=== PATIENT | male | born 1960 | race Caucasian/White ===

== ENCOUNTER 2019-12-21 10:21 | Outpatient (CLI) | payer OTHER, SELFPAY ==
--- NOTE | ~2019-12-21 | US_ITS ---
EXAMINATION: US right upper quadrant EXAM DATE: 12/21/2019 11:05 INDICATION: Cholecystectomy. Upper abdominal pain. TECHNIQUE: Multiple grayscale and Doppler images of the abdomen right upper quadrant were obtained (b y a technologist who performed the scan) and subsequently reviewed. Comparison is made to prior exami nation from 08/18/2018. FINDINGS: The pancreatic head and body are normal in appearance. The pancreatic tail is not visualized. The l iver has normal echogenicity and contour. There are no focal liver lesions identified. There is no evidence of intrahepatic biliary duct dilation. Portal venous flow was seen in the hepatopedal, nor mal direction and has normal Doppler waveform. No right-sided hydronephrosis. Common bile duct measures 5 mm, which is normal. The gallbladder fossa is unremarkable. IMPRESSION: 1. Unremarkable abdominal ultrasound exam. Reviewed, dictated and finalized at location A.
[2019-12-21 11:14] LABS: Basophils Percent Auto 0.5 % (0.2-1.2); Eosinophils Absolute Auto 1.8 K/mm3 (0-0.3); Hematocrit 46.8 % (42.0-52.0); Hemoglobin 16.2 g/dL (14.0-18.0); Immature Granulocyte Absolute 0.03 K/mm3 (0.00-0.031); Immature Granulocyte Percent A 0.3 % (0-0.5); Lymphocytes Absolute Auto 2.05 K/mm3 (0.9-3.2); Lymphocytes Percent Auto 23.8 % (18.3-44.2); Mean Corpuscular HGB Conc 34.6 g/dl (32-36); Mean Corpuscular Hemoglobin 30.7 pg (26-34); Mean Corpuscular Volume 88.6 fl (80-100); Mean Platelet Volume 9.8 fl (7.4-10.4); Monocytes Absolute Auto 0.7 K/mm3 (0.1-0.6); Neutrophils Percent Auto 46.4 % (45.5-73.1); Platelet Count Result 261 k/mm3 (150-375); Red Blood Count 5.28 M/mm3 (4.6-6.20); Red Cell Distribution Width 12.2 % (11.5-14.5); White Blood Count 8.6 K/mm3 (4.5-10.0)
[2019-12-21 11:21] LABS: Hemoglobin A1C 5.3 % (<5.7)
[2019-12-21 11:24] LABS: Alanine Aminotransferase 19 U/L (4-50); Albumin Level 4.3 g/dL (3.5-5.1); Alkaline Phosphatase 97 U/L (38-126); Aspartate Amino Transferase 28 U/L (17-59); Bilirubin,Total 0.6 mg/dL (0.2-1.3); Blood Urea Nitrogen 11 mg/dL (9-20); Calcium 9.3 mg/dL (8.4-10.2); Carbon Dioxide 29 mmol/L (22-30); Chloride 103 mmol/L (98-107); Cholesterol 167 mg/dL (0-200); Estimated Glomerular Filt Rate > 60; Glucose 93 mg/dL (75-110); HDL Direct 33 mg/dL; Sodium 139 mmol/L (137-145); Triglycerides 110 mg/dL (<150)
[2019-12-21 11:35] LABS: LDL Cholesterol Direct 98 mg/dL
[2019-12-21 11:54] LABS: Prostate Specific Antigen 4.9 ng/mL (< OR = 4.0); Thyroid Stimulating Hormone 0.362 uIU/mL (0.465-4.680)
[2019-12-21 11:55] LABS: Free T4 Free Thyroxine 1.48 ng/mL (0.78-2.19)
[2019-12-25 23:08] LABS: Vitamin D 1,25 (OH)2 Total 44 pg/mL (18-72); Vitamin D2 1,25 (OH)2 <8 pg/mL; Vitamin D3 1,25 (OH)2 44 pg/mL
== END 2019-12-21 10:22 | disposition home or self-care (01) ==
PROVIDERS: PCP Internal Medicine; Visit Provider Internal Medicine
DX: E55.9 Vitamin D deficiency, unspecified (principal); E03.9 Hypothyroidism, unspecified; E78.2 Mixed hyperlipidemia; Z12.5 Encounter for screening for malignant neoplasm of prostate; Z79.899 Other long term (current) drug therapy
CPT/HCPCS: 36415; 76705; 80053; 80061; 82652; 83036; 84153; 84439; 84443; 85025; G0103

== ENCOUNTER 2019-12-27 06:48 | Outpatient (CLI) | payer OTHER, SELFPAY ==
[2019-12-31 15:38] LABS: H pylori Ag Stool Not Detected (Not Detected)
== END 2019-12-27 06:49 | disposition home or self-care (01) ==
LOC: ANHLAB 06:50
PROVIDERS: PCP Internal Medicine; Visit Provider Surgery
DX: R10.10 Upper abdominal pain, unspecified (principal)
CPT/HCPCS: 87338

== ENCOUNTER 2020-01-02 16:01 | Outpatient (CLI) | payer OTHER, SELFPAY ==
--- NOTE | ~2020-01-02 | MR_ITS ---
EXAMINATION: MR brain/brain stem wo/w con EXAM DATE: 01/02/2020 16:51 INDICATION: Loss of taste and smell. TECHNIQUE: Magnetic resonance imaging (MRI) of the brain/brain stem obtained without contrast. Sagit renata T1, axial diffusion, gradient echo (T2*), T1, T2, FLAIR sequences obtained. Patient was then inj ected with 18 cc intravenous Multihance contrast. Axial and coronal postcontrast T1 weighted sequence s obtained. Correlation is made to head CT from 02/15/2019. FINDINGS: Some metallic artifact from tiny piece of metal in the left scalp. There are no areas of re stricted diffusion to suggest acute infarction. There is no acute hemorrhage seen on the T2*, a hemo siderin sensitive sequence. No intraparenchymal brain mass. The ventricles are normal in size. Ther e are no extra-axial collections. Flow voids are seen in the cerebral arteries on the T2-weighted se quences consistent with their expected patency. The orbits are unremarkable. Soft tissue is unremar kable. Sinuses are nearly completely opacified. Please note that they were completely opacified on prior sinus CT. Chronic or acute on chronic sinusitis. There are no areas of abnormal enhancement on the post contrast images. The IMPRESSION: 1. Unremarkable brain. 2. Extensive sinus opacity, consider sinusitis. Reviewed, dictated and finalized at location A.
== END 2020-01-02 16:02 | disposition home or self-care (01) ==
PROVIDERS: PCP Internal Medicine; Visit Provider Internal Medicine
DX: R43.8 Other disturbances of smell and taste (principal); R93.0 Abnormal findings on diagnostic imaging of skull and head, not elsewhere classified
CPT/HCPCS: 70553; A9577

== ENCOUNTER 2020-01-04 00:38 | Outpatient (CLI) | payer OTHER, SELFPAY ==
[2020-01-04 18:35] LABS: SARS-CoV-2 RNA PCR Negative
== END 2020-01-04 00:39 | disposition home or self-care (01) ==
LOC: ANHCOVIDDT 00:38
PROVIDERS: PCP Internal Medicine; Visit Provider Internal Medicine Gastroenterology
DX: Z01.812 Encounter for preprocedural laboratory examination (principal); Z20.828 Contact with and (suspected) exposure to other viral communicable diseases
CPT/HCPCS: 87635; C9803; U0003

== ENCOUNTER 2020-01-07 01:19 | Day surgery (SDC) | payer OTHER, SELFPAY ==
[2019-12-27 13:34] VITALS: BMI 27.5
--- NOTE | 2020-01-07 07:13 | WPDANESEPPF ---
Anes - Initial Pre Proc Eval Procedure: Operation Date: 01/07/20 10:30 Proposed Procedures p Esophagogastroduodenoscopy & Colonoscopy - Chris Gerardo MD Date/Time: 01/07/20 07:13 Surgeon: Chris Gerardo MD Pre Op Diagnosis: Abdominal Pain Patient Data Age: 59 Gender: M Height: 1.83 m Weight: 92 kg Allergies Allergy/AdvReac Type Severity Reaction Status Date / Time No Known Allergies Allergy Verified 01/07/20 09:34 Home Medications Medication Instructions Recorded Confirmed Type Bacillus coagulans 250 million 2 tablet PO DAILY 04/26/19 12/27/19 History cell-calcium 250 mg chewable tablet ascorbic acid (vitamin C) 500 mg 500 mg PO DAILY 04/26/19 12/27/19 History capsule aspirin 81 mg tablet,delayed 81 mg PO DAILY 04/26/19 12/27/19 History release cetirizine 10 mg capsule 10 mg PO DAILY 04/26/19 12/27/19 History cinnamon bark 500 mg capsule 1,000 mg PO DAILY cap 04/26/19 12/27/19 History montelukast 10 mg tablet 10 mg PO DAILY 04/26/19 12/27/19 History niacin 500 mg capsule,extended 500 mg PO QAM 04/26/19 12/27/19 History release omega-3 fatty acids 500 mg capsule 500 mg PO DAILY 04/26/19 12/27/19 History levothyroxine 112 mcg tablet 112 mcg PO DAILY #90 tablet 11/19/19 12/27/19 Rx budesonide-formoterol HFA 160 2 puff INHALATION Q12H 12/21/19 12/27/19 History mcg-4.5 mcg/actuation aerosol inhaler calcium citrate 250 mg 1 tablet PO BID 12/21/19 12/27/19 History calcium-vitamin D3 200 unit tablet esomeprazole magnesium 40 mg 40 mg PO DAILY #30 cap 12/21/19 12/27/19 Rx capsule,delayed release albuterol sulfate 1 inh INHALATION QID PRN 12/27/19 12/27/19 History Patient hx anesthesia problems: none Family hx anesthesia problems: none PMFSH Social History Social History Smoking status: Never smoker Smoking end date: 01/01/99 Alcohol intake: current Gender identity (if verbalized by the patient): Male Anes - Eval Final PreProcedure Day of Procedure 01/07/20 07:13 Patient weight: overweight Heart: regular rate and rhythm Lungs: clear to auscultation and normal air movement Airway: Mallampati scale class II Neurological: alert and oriented Last oral intake: >/= 8 hours ASA classification: II Emergent: no Anesthetic plan: proceed Anesthesia type and monitoring: general GIVS Informed Consent: The patient's anesthetic plan and its attendant risks and benefits were discussed with the patient/family/POA. Questions were solicited and answers provided to the satisfaction of the patient/family/POA.
[2020-01-07 09:36] VITALS: BP 126/80; PULSE 78; RESP 16; TEMP 36.5; O2SAT 96; BMI 26.6
[2020-01-07] MEDS: LACTATED RINGERS 1,000 ML 150 ML IV CONT (09:54)
--- NOTE | 2020-01-07 10:16 | WPDGICN ---
Assessment and Plan Assessment and plan (1) Abdominal pain: Qualifiers: Abdominal location: upper abdomen, unspecified Qualified Code(s): R10.10 - Upper abdominal pain, unspecified Code(s): R10.9 - Unspecified abdominal pain Status: Acute Assessment and Plan: Patient has rather vague upper abdominal pain. The etiology is unclear. Does not appear to be related to cholecystectomy performed 1 year ago. Recent laboratory studies and ultrasound are unremarkable. Plan is for colonoscopy an EGD to evaluate more thoroughly. Continue trial of Nexium 40 mg p.o. daily further recommendations will be given after endoscopy. (2) S/P laparoscopic cholecystectomy: Code(s): Z90.49 - Acquired absence of other specified parts of digestive tract Status: Acute GI Consult Note Consult date/time: 01/07/20 10:16 HPI: Randy Vaca is a 59 year old male Seen in evaluation at the request of Dr Newman. patient presents complain about a 3 week history of upper abdominal discomfort. He describes is a pressure pain. Similar to the urge for a bowel movement. Having a bowel movement makes no impact on the pain. He states denies any change with eating. No change with an acids. He has a history of a cholecystectomy 1 year ago. Follow-up with surgeon including abdominal ultrasound is on fruitful. Patient denies any jaundice. Denies any fever. Denies any bleeding. He has had no weight loss. He did have a screening colonoscopy 5 years ago that was unremarkable. His weight appetite, In bowel, movements are otherwise normal. Review of Systems Review of Systems: All systems reviewed & are unremarkable except as noted in HPI and below PMFSH Past Medical History Medical History Abdominal pain Asthma BMI 28.0-28.9,adult Encounter for routine adult health examination with abnormal findings Encounter for special screening examination for neoplasm of prostate GERD (gastroesophageal reflux disease) Hyperlipidemia Hypothyroidism (acquired) On [place] agent drug therapy Thyroid disease Vitamin D deficiency Surgical History Surgical History History of cholecystectomy 11/20/18 Social History Social History Smoking status: Never smoker Smoking end date: 05/23/98 Alcohol intake: current Gender identity (if verbalized by the patient): Male Meds Home Medications and Allergies Home Medications Medication Instructions Recorded Confirmed Type Bacillus coagulans 250 million 2 tablet PO DAILY 04/26/19 12/27/19 History cell-calcium 250 mg chewable tablet ascorbic acid (vitamin C) 500 mg 500 mg PO DAILY 04/26/19 12/27/19 History capsule aspirin 81 mg tablet,delayed 81 mg PO DAILY 04/26/19 12/27/19 History release cetirizine 10 mg capsule 10 mg PO DAILY 04/26/19 12/27/19 History cinnamon bark 500 mg capsule 1,000 mg PO DAILY cap 04/26/19 12/27/19 History montelukast 10 mg tablet 10 mg PO DAILY 04/26/19 12/27/19 History niacin 500 mg capsule,extended 500 mg PO QAM 04/26/19 12/27/19 History release omega-3 fatty acids 500 mg capsule 500 mg PO DAILY 04/26/19 12/27/19 History levothyroxine 112 mcg tablet 112 mcg PO DAILY #90 tablet 11/19/19 12/27/19 Rx budesonide-formoterol HFA 160 2 puff INHALATION Q12H 12/21/19 12/27/19 History mcg-4.5 mcg/actuation aerosol inhaler calcium citrate 250 mg 1 tablet PO BID 12/21/19 12/27/19 History calcium-vitamin D3 200 unit tablet esomeprazole magnesium 40 mg 40 mg PO DAILY #30 cap 12/21/19 12/27/19 Rx capsule,delayed release albuterol sulfate 1 inh INHALATION QID PRN 12/27/19 12/27/19 History Allergies Allergy/AdvReac Type Severity Reaction Status Date / Time No Known Allergies Allergy Verified 01/07/20 09:34 Vital Signs Vital Signs - 24 hr 01/07/20 09:36 Temperature 97.7
[2020-01-07] MEDS: BENZOCAINE (*SP) 60 ML SPRAY CAN (HURRICAINE) 1 SPRAY MUCOUS MEM (11:03)
[2020-01-07] MEDS: SIMETHICONE ORAL SUSPENSION 20 MG/0.3 ML 30 ML BOTTLE 0.6 ML IRRIGATION (11:19)
[2020-01-07 11:32] VITALS: BP 102/54; PULSE 69; RESP 20; O2SAT 98
[2020-01-07 11:42] VITALS: BP 101/67; PULSE 63; RESP 18; O2SAT 99
[2020-01-07 11:52] VITALS: BP 100/67; PULSE 58; RESP 16; O2SAT 99
== END 2020-01-07 12:07 | disposition home or self-care (01) ==
PROVIDERS: PCP Internal Medicine; Visit Provider Internal Medicine Gastroenterology
PROC: 0DJ08ZZ Inspection of Upper Intestinal Tract, Via Natural or Artificial Opening Endoscopic (ICD-10-PCS; CPT 43235; principal; 2020-01-07 10:30)
DX: R10.84 Generalized abdominal pain (principal); R10.13 Epigastric pain; D12.3 Benign neoplasm of transverse colon; K64.8 Other hemorrhoids; J45.909 Unspecified asthma, uncomplicated; K21.9 Gastro-esophageal reflux disease without esophagitis; E78.5 Hyperlipidemia, unspecified; E03.9 Hypothyroidism, unspecified; E55.9 Vitamin D deficiency, unspecified; E66.3 Overweight; Z68.26 Body mass index [BMI] 26.0-26.9, adult; Z79.51 Long term (current) use of inhaled steroids; Z79.82 Long term (current) use of aspirin; Z79.899 Other long term (current) drug therapy
CPT/HCPCS: 45385; 43239; 87081; 88305; A9270; J2704; J7120

== ENCOUNTER 2020-01-31 08:58 | Outpatient (CLI) | payer OTHER, SELFPAY ==
[2020-01-31 09:52] LABS: Alanine Aminotransferase 18 U/L (4-50); Alkaline Phosphatase 94 U/L (38-126); Anion Gap 6 mmol/L (8-16); Aspartate Amino Transferase 23 U/L (17-59); Bilirubin,Total 0.3 mg/dL (0.2-1.3); Blood Urea Nitrogen 17 mg/dL (9-20); Calcium 8.9 mg/dL (8.4-10.2); Carbon Dioxide 28 mmol/L (22-30); Chloride 105 mmol/L (98-107); Estimated Glomerular Filt Rate > 60; Glucose 96 mg/dL (75-110); Lipase 265 U/L (23-300); Potassium 4.3 mmol/L (3.4-5.0); Sodium 139 mmol/L (137-145)
== END 2020-01-31 08:59 | disposition home or self-care (01) ==
PROVIDERS: PCP Internal Medicine; Visit Provider Surgery
DX: R74.8 Abnormal levels of other serum enzymes (principal)
CPT/HCPCS: 36415; 80053; 83690

== ENCOUNTER 2020-05-08 17:07 | Outpatient (CLI) | payer OTHER, SELFPAY ==
[2020-05-10 23:32] LABS: PSA, Free 0.97 ng/mL; PSA, Total 4.7 ng/mL (<=4.0); Percent Free Prostate Spec Ag 21 % (>25)
== END 2020-05-08 17:08 | disposition home or self-care (01) ==
LOC: ANHLAB 17:09
PROVIDERS: PCP Internal Medicine; Visit Provider Urology
DX: R97.20 Elevated prostate specific antigen [PSA] (principal)
CPT/HCPCS: 36415; 84153; 84154

== ENCOUNTER 2020-08-01 06:56 | Outpatient (CLI) | payer OTHER, SELFPAY ==
[2020-08-01 07:36] LABS: Basophils Absolute Auto 0.1 K/mm3 (0.0-0.1); Basophils Percent Auto 0.9 % (0.2-1.2); Eosinophils Absolute Auto 0.9 K/mm3 (0-0.3); Eosinophils Percent Auto 11.8 % (0-4.4); Hematocrit 47.8 % (42.0-52.0); Hemoglobin 16.5 g/dL (14.0-18.0); Immature Granulocyte Absolute 0.02 K/mm3 (0.00-0.031); Immature Granulocyte Percent A 0.3 % (0-0.5); Lymphocytes Absolute Auto 1.88 K/mm3 (0.9-3.2); Lymphocytes Percent Auto 25.2 % (18.3-44.2); Mean Corpuscular HGB Conc 34.5 g/dl (32-36); Mean Corpuscular Hemoglobin 31.2 pg (26-34); Mean Corpuscular Volume 90.4 fl (80-100); Mean Platelet Volume 8.9 fl (7.4-10.4); Monocytes Absolute Auto 0.6 K/mm3 (0.1-0.6); Monocytes Percent Auto 8.6 % (2.6-8.5); Neutrophils Percent Auto 53.2 % (45.5-73.1); Platelet Count Result 256 k/mm3 (150-375); Red Blood Count 5.29 M/mm3 (4.6-6.20); Red Cell Distribution Width 12.2 % (11.5-14.5); White Blood Count 7.5 K/mm3 (4.5-10.0)
[2020-08-01 07:50] LABS: Alanine Aminotransferase 20 U/L (4-50); Albumin Level 4.5 g/dL (3.5-5.1); Alkaline Phosphatase 84 U/L (38-126); Anion Gap 7 mmol/L (8-16); Aspartate Amino Transferase 26 U/L (17-59); Bilirubin,Total 0.7 mg/dL (0.2-1.3); Blood Urea Nitrogen 16 mg/dL (9-20); Calcium 9.3 mg/dL (8.4-10.2); Carbon Dioxide 28 mmol/L (22-30); Chloride 106 mmol/L (98-107); Cholesterol 219 mg/dL (0-200); Estimated Glomerular Filt Rate > 60; Glucose 107 mg/dL (75-110); HDL Direct 48 mg/dL; Potassium 4.5 mmol/L (3.4-5.0); Sodium 141 mmol/L (137-145); Triglycerides 107 mg/dL (<150)
[2020-08-01 08:02] LABS: LDL Cholesterol Direct 118 mg/dL
[2020-08-01 14:41] LABS: Free T4 Free Thyroxine 1.21 ng/mL (0.78-2.19); Vitamin D 25 Hydroxy 34.1 ng/mL
[2020-08-08 04:45] LABS: Apolipoprotein B 106 mg/dL (<90)
== END 2020-08-01 06:57 | disposition home or self-care (01) ==
PROVIDERS: PCP Internal Medicine; Visit Provider Internal Medicine
DX: E03.9 Hypothyroidism, unspecified (principal); E78.00 Pure hypercholesterolemia, unspecified; Z79.899 Other long term (current) drug therapy; E55.9 Vitamin D deficiency, unspecified
CPT/HCPCS: 36415; 80053; 80061; 82172; 82306; 84439; 84443; 85025

== ENCOUNTER 2021-01-31 07:26 | Outpatient (CLI) | payer OTHER, SELFPAY ==
[2021-01-31 07:48] LABS: Basophils Absolute Auto 0.1 K/mm3 (0.0-0.1); Basophils Percent Auto 0.9 % (0.2-1.2); Eosinophils Absolute Auto 0.8 K/mm3 (0-0.3); Eosinophils Percent Auto 11.1 % (0-4.4); Hematocrit 46.8 % (42.0-52.0); Hemoglobin 15.8 g/dL (14.0-18.0); Immature Granulocyte Absolute 0.01 K/mm3 (0.00-0.031); Immature Granulocyte Percent A 0.1 % (0-0.5); Lymphocytes Absolute Auto 1.91 K/mm3 (0.9-3.2); Lymphocytes Percent Auto 27.5 % (18.3-44.2); Mean Corpuscular HGB Conc 33.8 g/dl (32-36); Mean Corpuscular Hemoglobin 30.5 pg (26-34); Mean Corpuscular Volume 90.3 fl (80-100); Mean Platelet Volume 9.2 fl (7.4-10.4); Monocytes Absolute Auto 0.7 K/mm3 (0.1-0.6); Monocytes Percent Auto 9.5 % (2.6-8.5); Neutrophils Absolute Auto 3.5 K/mm3 (1.3-6.7); Neutrophils Percent Auto 50.9 % (45.5-73.1); Platelet Count Result 215 k/mm3 (150-375); Red Blood Count 5.18 M/mm3 (4.6-6.20); Red Cell Distribution Width 12.1 % (11.5-14.5)
[2021-01-31 08:00] LABS: Alanine Aminotransferase 31 U/L (4-50); Albumin Level 4.7 g/dL (3.5-5.1); Alkaline Phosphatase 75 U/L (38-126); Anion Gap 11 mmol/L (8-16); Aspartate Amino Transferase 29 U/L (17-59); Blood Urea Nitrogen 11 mg/dL (9-20); Calcium 9.6 mg/dL (8.4-10.2); Carbon Dioxide 26 mmol/L (22-30); Chloride 105 mmol/L (98-107); Cholesterol 111 mg/dL (0-200); Estimated Glomerular Filt Rate > 60; Glucose 100 mg/dL (65-110); HDL Direct 46 mg/dL; Potassium 4.4 mmol/L (3.4-5.0); Sodium 142 mmol/L (137-145); Triglycerides 66 mg/dL (<150)
[2021-01-31 08:11] LABS: LDL Cholesterol Direct 40 mg/dL
[2021-01-31 08:31] LABS: Thyroid Stimulating Hormone 0.249 uIU/mL (0.465-4.680)
[2021-01-31 08:34] LABS: Hemoglobin A1C 5.6 % (<5.7)
[2021-01-31 09:04] LABS: Free T4 Free Thyroxine 1.19 ng/mL (0.78-2.19)
[2021-02-04 10:44] LABS: Apolipoprotein B 51 mg/dL (<90)
== END 2021-01-31 07:27 | disposition home or self-care (01) ==
PROVIDERS: PCP Internal Medicine; Visit Provider Internal Medicine
DX: E78.2 Mixed hyperlipidemia (principal); E03.9 Hypothyroidism, unspecified; Z51.81 Encounter for therapeutic drug level monitoring; Z79.899 Other long term (current) drug therapy
CPT/HCPCS: 36415; 80053; 80061; 82172; 82248; 83036; 84439; 84443; 85025

== ENCOUNTER 2021-08-15 09:40 | Outpatient (CLI) | payer OTHER, SELFPAY ==
[2021-08-15 10:00] LABS: Basophils Absolute Auto 0.1 K/mm3 (0.0-0.1); Basophils Percent Auto 1.2 % (0.2-1.2); Eosinophils Absolute Auto 0.8 K/mm3 (0-0.3); Eosinophils Percent Auto 12.9 % (0-4.4); Hematocrit 47.3 % (42.0-52.0); Immature Granulocyte Absolute 0.02 K/mm3 (0.00-0.031); Immature Granulocyte Percent A 0.3 % (0-0.5); Lymphocytes Absolute Auto 1.76 K/mm3 (0.9-3.2); Lymphocytes Percent Auto 27.4 % (18.3-44.2); Mean Corpuscular HGB Conc 33.8 g/dl (32-36); Mean Corpuscular Hemoglobin 30.7 pg (26-34); Mean Corpuscular Volume 90.6 fl (80-100); Mean Platelet Volume 9.2 fl (7.4-10.4); Monocytes Absolute Auto 0.5 K/mm3 (0.1-0.6); Monocytes Percent Auto 8.1 % (2.6-8.5); Neutrophils Absolute Auto 3.2 K/mm3 (1.3-6.7); Neutrophils Percent Auto 50.1 % (45.5-73.1); Platelet Count Result 217 k/mm3 (150-375); Red Blood Count 5.22 M/mm3 (4.6-6.20); Red Cell Distribution Width 12.2 % (11.5-14.5); White Blood Count 6.4 K/mm3 (4.5-10.0)
[2021-08-15 10:02] LABS: Add Urine Microscopic? NO; Appearance Urine Clear (Clear); Bilirubin Urine Negative (Negative); Blood Urine Negative (Negative); Color Urine Straw (Yellow); Glucose Urine UA Negative (Negative); Ketones Urine Negative (Negative); Leukocyte Esterase Ur Negative LEU/UL (Negative); Nitrate Urine Negative (Negative); Protein Urine Negative (Negative); Urobilinogen Urine Negative mg/dL (<2.0)
[2021-08-15 10:12] LABS: Alanine Aminotransferase 32 U/L (4-50); Albumin Level 4.4 g/dL (3.5-5.1); Alkaline Phosphatase 70 U/L (38-126); Anion Gap 5 mmol/L (8-16); Aspartate Amino Transferase 33 U/L (17-59); Bilirubin,Total 0.9 mg/dL (0.2-1.3); Blood Urea Nitrogen 13 mg/dL (9-20); Calcium 9.2 mg/dL (8.4-10.2); Carbon Dioxide 29 mmol/L (22-30); Chloride 103 mmol/L (98-107); Cholesterol 95 mg/dL (0-200); Estimated Glomerular Filt Rate > 60; Glucose 94 mg/dL (65-110); HDL Direct 41 mg/dL; Potassium 4.5 mmol/L (3.4-5.0); Sodium 137 mmol/L (137-145); Triglycerides 58 mg/dL (<150)
[2021-08-15 10:23] LABS: LDL Cholesterol Direct 35 mg/dL
[2021-08-15 10:33] LABS: Specific Grav Ur 1.004 (1.001-1.035)
[2021-08-15 10:44] LABS: Prostate Specific Antigen 4.1 ng/mL (< OR = 4.0); Thyroid Stimulating Hormone 0.175 uIU/mL (0.465-4.680)
[2021-08-15 11:04] LABS: Free T4 Free Thyroxine 1.33 ng/mL (0.78-2.19); Vitamin D 25 Hydroxy 34.1 ng/mL
== END 2021-08-15 09:41 | disposition home or self-care (01) ==
PROVIDERS: PCP Internal Medicine; Visit Provider Internal Medicine
DX: E03.9 Hypothyroidism, unspecified (principal); E78.2 Mixed hyperlipidemia; Z79.899 Other long term (current) drug therapy; R97.20 Elevated prostate specific antigen [PSA]; Z12.5 Encounter for screening for malignant neoplasm of prostate; E55.9 Vitamin D deficiency, unspecified
CPT/HCPCS: 36415; 80053; 80061; 81003; 82306; 84153; 84439; 84443; 85025; G0103

== ENCOUNTER 2022-01-11 07:44 | Outpatient (CLI) | payer OTHER, SELFPAY ==
--- NOTE | ~2022-01-11 | XR_ITS ---
EXAMINATION: XR UGIAC w barium swallow DATE: 01/11/2022 08:11 INDICATION: Unspecified abdominal pain. Gastroesophageal reflux disease. TECHNIQUE: The patient drank thick barium, gas-producing crystals, and thin barium. Fluoroscopy of th e esophagus, stomach, and proximal small bowel was performed. Fluoroscopy exposure time was 0.5 minut es. The total number of images was 273. Total dose-area product was 1.3 Gy-cm^2. COMPARISON: None. FINDINGS: There is no mass or stricture of the esophagus. Esophageal motility is normal. There is no hiatal hernia. There was no gastroesophageal reflux with provocative maneuvers. The stomach and proxi mal small bowel show normal folding patterns. IMPRESSION: 1. Normal upper gastrointestinal series. Reviewed, dictated and finalized at location A.
== END 2022-01-11 07:45 | disposition home or self-care (01) ==
LOC: ANHIMG 07:45
PROVIDERS: PCP Internal Medicine; Visit Provider Internal Medicine
DX: R10.9 Unspecified abdominal pain (principal); R13.10 Dysphagia, unspecified; K21.9 Gastro-esophageal reflux disease without esophagitis
CPT/HCPCS: 74246

== ENCOUNTER 2022-01-19 06:48 | Outpatient (CLI) | payer OTHER, SELFPAY ==
--- NOTE | ~2022-01-19 | US_ITS ---
EXAMINATION: US abdomen complete DATE: 01/19/2022 08:02 INDICATION: Abdominal pain TECHNIQUE: 12/21/2019 COMPARISON: None available FINDINGS: Bowel gas obscures visualization of the pancreas. The liver is normal with normal echogenic ity and echotexture. No surface nodularity. Normal hepatopetal flow in the main portal vein. The gall bladder is surgically absent. The normal common bile duct measures 5 mm. The visualized portions of t he aorta and inferior vena cava are normal. The right kidney measures 11.3 x 5.1 x 4.5 cm. The left kidney measures 11.1 x 4.6 x 4.8 cm. The kidn eys demonstrate normal parenchymal echogenicity. There is no hydronephrosis. The spleen is normal in appearance and measures 11.8 cm. IMPRESSION: 1. No sonographic correlate for the patient's symptoms. Reviewed, dictated and finalized at location A.
[2022-01-19 08:22] LABS: Hematocrit 44.5 % (42.0-52.0); Hemoglobin 14.9 g/dL (14.0-18.0); Mean Corpuscular HGB Conc 33.5 g/dl (32-36); Mean Corpuscular Hemoglobin 30.7 pg (26-34); Mean Corpuscular Volume 91.8 fl (80-100); Mean Platelet Volume 9.8 fl (7.4-10.4); Platelet Count Result 238 k/mm3 (150-375); Red Blood Count 4.85 M/mm3 (4.6-6.20); Red Cell Distribution Width 12.6 % (11.5-14.5); White Blood Count 10.4 K/mm3 (4.5-10.0)
[2022-01-19 08:35] LABS: Alanine Aminotransferase 28 U/L (6-50); Albumin Level 4.2 g/dL (3.5-5.1); Alkaline Phosphatase 71 U/L (38-126); Anion Gap 10 mmol/L (8-16); Aspartate Amino Transferase 25 U/L (17-59); Bilirubin,Total 0.7 mg/dL (0.2-1.3); Blood Urea Nitrogen 15 mg/dL (9-20); Calcium 9.3 mg/dL (8.4-10.2); Carbon Dioxide 29 mmol/L (22-30); Chloride 103 mmol/L (98-107); Cholesterol 85 mg/dL (0-200); Estimated Glomerular Filt Rate > 60; Glucose 98 mg/dL (65-110); HDL Direct 39 mg/dL; Potassium 4.1 mmol/L (3.4-5.0); Sodium 142 mmol/L (137-145); Triglycerides 71 mg/dL (<150)
[2022-01-19 08:40] LABS: Eosinophils Absolute Manual 3.01 K/mm3 (0.02-0.5); Eosinophils Percent Manual 29 % (0-4); Lymphocytes Absolute Manual 2.49 K/mm3 (1.1-4.5); Monocytes Absolute Manual 0.72 K/mm3 (0.1-0.90); Monocytes Percent Manual 7 % (3-9); Neutrophils Percent Manual 40 % (46-73); Platelet Estimate Adequate (Adequate); Total Cells Counted 100
[2022-01-19 09:03] LABS: Hemoglobin A1C 5.5 % (<5.7)
[2022-01-19 09:04] LABS: Prostate Specific Antigen 3.5 ng/mL (< OR = 4.0); Thyroid Stimulating Hormone 0.136 uIU/mL (0.465-4.680)
[2022-01-19 09:12] LABS: Free T4 Free Thyroxine 1.37 ng/mL (0.78-2.19); Vitamin D 25 Hydroxy 44.9 ng/mL
[2022-01-19 09:49] LABS: LDL Cholesterol Direct < 30 mg/dL
== END 2022-01-19 06:49 | disposition home or self-care (01) ==
PROVIDERS: PCP Internal Medicine; Visit Provider Internal Medicine
DX: R10.9 Unspecified abdominal pain (principal); Z90.49 Acquired absence of other specified parts of digestive tract; Z79.899 Other long term (current) drug therapy; E03.9 Hypothyroidism, unspecified; E78.2 Mixed hyperlipidemia; E55.9 Vitamin D deficiency, unspecified; R97.20 Elevated prostate specific antigen [PSA]
CPT/HCPCS: 36415; 76700; 80053; 80061; 82306; 83036; 84153; 84439; 84443; 85025

== ENCOUNTER 2022-01-29 01:25 | Day surgery (SDC) | payer OTHER, SELFPAY ==
[2022-01-26 08:39] VITALS: BMI 26.7
[2022-01-29 11:55] VITALS: BP 119/68; PULSE 58; RESP 16; TEMP 36.8; O2SAT 99
--- NOTE | 2022-01-29 12:04 | PM.IMHP ---
H&P: HPI History of Present Illness Date/Time: 01/29/22 12:04 Chief Complaint: Epigastric pain, vomiting, dysphagia. Narrative: This is a 61-year-old white male patient seen in evaluation at the request Dr. Reddy. Patient reports several week history of epigastric pain that described as rather severe cramping in nature. Associated with some vomiting. He had 1 day with difficulty swallowing. Patient had normal laboratory workup normal ultrasound and normal upper GI she is referred for EGD. Patient reports laboratory testing were normal during this interval. He has had gradual improvement over last 10-14 days. Patient denies any fever or weight loss. He has had no bleeding. Past medical history is significant for cholecystectomy. Patient is referred today for EGD. Review of Systems Review of Systems: Review of systems noncontributory. [facility] Past Medical History Medical History (Updated 01/19/22 @ 15:16 by Vida Marquez LPN) Abdominal pain Abnormal findings on imaging of biliary tract Actinic keratosis Acute asthmatic bronchitis Asthma Bilious vomiting BMI 27.0-27.9,adult BMI 28.0-28.9,adult BMI 29.0-29.9,adult Calculus of gallbladder with acute on chronic cholecystitis Cataract Cholecystitis Chronic sinusitis Cough Elevated LDL cholesterol level Encounter for preventive health examination Encounter for routine adult health examination with abnormal findings Encounter for routine adult health examination without abnormal findings Encounter for special screening examination for neoplasm of prostate Epigastric abdominal pain Follow up Gallbladder sludge GERD (gastroesophageal reflux disease) History of bronchitis Hx of colonic polyps Hyperlipidemia Hypothyroidism (acquired) Loss of smell Loss of taste Mild reactive airways disease Need for influenza vaccination 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 Right upper quadrant abdominal pain Thyroid disease Vitamin D deficiency Surgical History Surgical History History of cholecystectomy 11/20/18 Status post cholecystectomy Social History Social History Smoking status: Never smoker Smoking end date: 05/23/98 Alcohol intake: current Substance use: never Substance use type: does not use Living arrangements: with family Gender identity (if verbalized by the patient): Male Spiritual care concerns: No Meds Home Medications and Allergies Home Medications Medication Instructions Recorded Confirmed Type Bacillus coagulans 250 million 2 tablet PO DAILY 04/26/19 01/29/22 History cell-calcium 250 mg chewable tablet ascorbic acid (vitamin C) 500 mg 500 mg PO DAILY 04/26/19 01/29/22 History capsule aspirin 81 mg tablet,delayed 81 mg PO DAILY 04/26/19 01/29/22 History release (Adult Aspirin Regimen) cetirizine 10 mg capsule (Zyrtec) 10 mg PO DAILY 04/26/19 01/29/22 History niacin 500 mg capsule,extended 500 mg PO QAM 04/26/19 01/29/22 History release omega-3 fatty acids 500 mg capsule 500 mg PO DAILY 04/26/19 01/29/22 History calcium citrate 250 mg 1 tablet PO BID 12/21/19 01/29/22 History calcium-vitamin D3 5 mcg (200 unit) tablet fluticasone propionate 50 2 spray intranasal BID PRN nasal 08/08/20 01/29/22 Rx mcg/actuation nasal congestion #11.1 mL spray,suspension (Allergy Relief (fluticasone)) fluticasone furoate 100 See Rx Instructions .Route 08/03/21 01/29/22 Rx mcg-vilanterol 25 mcg/dose .COMPLEX #60 ea inhalation powder (Breo Ellipta) montelukast 10 mg tablet See Rx Instructions .Route 09/09/21 01/29/22 Rx .COMPLEX #90 tabs levothyroxine 112 mcg tablet See Rx Instructions .Route 12/08/21 01/29/22 Rx (Euthyrox) .COMPLEX #90 tabs famotidine 40 mg tablet (Pepcid) 40 mg PO BID #60 tabs 12/29/21 01/29/22 Rx rosuvastatin 5 mg tablet See Rx Instructions .Route 01/19/22 01/29/22 Rx .COMPLEX #90 tab
[2022-01-29] MEDS: LACTATED RINGERS 1,000 ML 150 ML IV CONT (12:10)
--- NOTE | 2022-01-29 12:18 | WPDANESEPPF ---
Anes - Initial Pre Proc Eval Procedure: Operation Date: 01/29/22 12:30 Proposed Procedures p Esophagogastroduodenoscopy - Chris Gerardo MD Date/Time: 01/29/22 12:18 Surgeon: Chris Gerardo MD Pre Op Diagnosis: vomiting, abdominal pain Patient Data Age: 61 Gender: M Height: 1.83 m Weight: 88.7 kg Last Vital Signs Temp 98.3 F 01/29/22 11:55 Pulse 58 L 01/29/22 11:55 Resp 16 01/29/22 11:55 BP 119/68 01/29/22 11:55 Pulse Ox 99 01/29/22 11:55 O2 Del Method Room Air 01/29/22 11:55 Allergies Allergy/AdvReac Type Severity Reaction Status Date / Time No Known Allergies Allergy Verified 01/29/22 11:51 Home Medications Medication Instructions Recorded Confirmed Type Bacillus coagulans 250 million 2 tablet PO DAILY 04/26/19 01/29/22 History cell-calcium 250 mg chewable tablet ascorbic acid (vitamin C) 500 mg 500 mg PO DAILY 04/26/19 01/29/22 History capsule aspirin 81 mg tablet,delayed 81 mg PO DAILY 04/26/19 01/29/22 History release (Adult Aspirin Regimen) cetirizine 10 mg capsule (Zyrtec) 10 mg PO DAILY 04/26/19 01/29/22 History niacin 500 mg capsule,extended 500 mg PO QAM 04/26/19 01/29/22 History release omega-3 fatty acids 500 mg capsule 500 mg PO DAILY 04/26/19 01/29/22 History calcium citrate 250 mg 1 tablet PO BID 12/21/19 01/29/22 History calcium-vitamin D3 5 mcg (200 unit) tablet fluticasone propionate 50 2 spray intranasal BID PRN nasal 08/08/20 01/29/22 Rx mcg/actuation nasal congestion #11.1 mL spray,suspension (Allergy Relief (fluticasone)) fluticasone furoate 100 See Rx Instructions .Route 08/03/21 01/29/22 Rx mcg-vilanterol 25 mcg/dose .COMPLEX #60 ea inhalation powder (Breo Ellipta) montelukast 10 mg tablet See Rx Instructions .Route 09/09/21 01/29/22 Rx .COMPLEX #90 tabs levothyroxine 112 mcg tablet See Rx Instructions .Route 12/08/21 01/29/22 Rx (Euthyrox) .COMPLEX #90 tabs famotidine 40 mg tablet (Pepcid) 40 mg PO BID #60 tabs 12/29/21 01/29/22 Rx rosuvastatin 5 mg tablet See Rx Instructions .Route 01/19/22 01/29/22 Rx .COMPLEX #90 tabs dicyclomine 10 mg capsule 10 mg PO BID 01/26/22 01/29/22 History Patient hx anesthesia problems: none Family hx anesthesia problems: none Results Review: All pre-operative results and documents have been reviewed as part of the pre-operative evaluation. [facility] Past Medical History Medical History (Updated 01/19/22 @ 15:16 by Vida Marquez LPN) Abdominal pain Abnormal findings on imaging of biliary tract Actinic keratosis Acute asthmatic bronchitis Asthma Bilious vomiting BMI 27.0-27.9,adult BMI 28.0-28.9,adult BMI 29.0-29.9,adult Calculus of gallbladder with acute on chronic cholecystitis Cataract Cholecystitis Chronic sinusitis Cough Elevated LDL cholesterol level Encounter for preventive health examination Encounter for routine adult health examination with abnormal findings Encounter for routine adult health examination without abnormal findings Encounter for special screening examination for neoplasm of prostate Epigastric abdominal pain Follow up Gallbladder sludge GERD (gastroesophageal reflux disease) History of bronchitis Hx of colonic polyps Hyperlipidemia Hypothyroidism (acquired) Loss of smell Loss of taste Mild reactive airways disease Need for influenza vaccination On custodial drug therapy Right upper quadrant abdominal pain Thyroid disease Vitamin D deficiency Surgical History Surgical History History of cholecystectomy 11/20/18 Status post cholecystectomy Social History Social History Smoking status: Never smoker Smoking end date: 05/23/98 Alcohol intake: current Substance use: never Substance use type: does not use Living arrangements: with family Gender identity (if verbalized by the patient): Male Spiritua
[2022-01-29 12:49] VITALS: BP 103/64; PULSE 57; RESP 19; O2SAT 95
[2022-01-29 12:59] VITALS: BP 110/64; PULSE 56; RESP 19; O2SAT 100
[2022-01-29 13:08] VITALS: BP 118/70; PULSE 56; RESP 19; O2SAT 100
== END 2022-01-29 13:30 | disposition home or self-care (01) ==
PROVIDERS: PCP Internal Medicine; Visit Provider Internal Medicine Gastroenterology
PROC: 0DJ08ZZ Inspection of Upper Intestinal Tract, Via Natural or Artificial Opening Endoscopic (ICD-10-PCS; CPT 43235; principal; 2022-01-29 12:30)
DX: R10.13 Epigastric pain (principal); R13.10 Dysphagia, unspecified; R11.10 Vomiting, unspecified; K21.9 Gastro-esophageal reflux disease without esophagitis; E78.5 Hyperlipidemia, unspecified; E03.9 Hypothyroidism, unspecified; E55.9 Vitamin D deficiency, unspecified; R43.8 Other disturbances of smell and taste; Z86.010 Personal history of colon polyps; Z79.899 Other long term (current) drug therapy; Z90.49 Acquired absence of other specified parts of digestive tract
CPT/HCPCS: 43239; 87081; J7120

== ENCOUNTER 2022-10-16 06:45 | Outpatient (CLI) | payer OTHER, SELFPAY ==
[2022-10-16 08:39] LABS: Alanine Aminotransferase 39 U/L (6-50); Albumin Level 4.5 g/dL (3.5-5.1); Alkaline Phosphatase 65 U/L (38-126); Anion Gap 8 mmol/L (8-16); Aspartate Amino Transferase 34 U/L (17-59); Bilirubin,Total 0.9 mg/dL (0.2-1.3); Blood Urea Nitrogen 14 mg/dL (9-20); Calcium 9.4 mg/dL (8.4-10.2); Carbon Dioxide 29 mmol/L (22-30); Chloride 101 mmol/L (98-107); Cholesterol 116 mg/dL (0-200); Estimated Glomerular Filt Rate > 60; Glucose 94 mg/dL (65-110); HDL Direct 45 mg/dL; Potassium 4.2 mmol/L (3.4-5.0); Sodium 138 mmol/L (137-145); Triglycerides 81 mg/dL (<150)
[2022-10-16 08:51] LABS: LDL Cholesterol Direct 48 mg/dL
[2022-10-16 09:09] LABS: Prostate Specific Antigen 5.9 ng/mL (< OR = 4.0); Thyroid Stimulating Hormone 0.381 uIU/mL (0.465-4.680)
[2022-10-16 11:07] LABS: Free T4 Free Thyroxine 1.31 ng/mL (0.78-2.19)
== END 2022-10-16 06:46 | disposition home or self-care (01) ==
PROVIDERS: PCP Internal Medicine; Visit Provider Internal Medicine
DX: Z00.00 Encounter for general adult medical examination without abnormal findings (principal); E78.2 Mixed hyperlipidemia; E78.00 Pure hypercholesterolemia, unspecified; R97.20 Elevated prostate specific antigen [PSA]; R74.8 Abnormal levels of other serum enzymes; E03.9 Hypothyroidism, unspecified; Z68.27 Body mass index [BMI] 27.0-27.9, adult; Z83.3 Family history of diabetes mellitus; Z79.899 Other long term (current) drug therapy
CPT/HCPCS: 36415; 80053; 80061; 84153; 84439; 84443

== ENCOUNTER 2022-12-02 08:14 | Outpatient (CLI) | payer OTHER, SELFPAY ==
--- NOTE | ~2022-12-02 | US_ITS ---
EXAMINATION: US venous doppler [facility] DATE: 12/02/2022 08:49 INDICATION: Left lower limb pain TECHNIQUE: Howe scale images without and with compression and Doppler images of the left lower extrem ity veins were obtained. COMPARISON: None FINDINGS: The left common femoral vein, profunda femoral vein, femoral vein, popliteal vein, peroneal trunk, posterior tibial veins, and greater saphenous vein are patent. IMPRESSION: 1. Patent left lower extremity veins. No evidence of deep venous thrombosis. Reviewed, dictated and finalized at location L.
--- NOTE | ~2022-12-02 | XR_ITS ---
EXAMINATION: XR ankle LT min 3V DATE: 12/02/2022 08:36 INDICATION: Left ankle pain and swelling TECHNIQUE: Anteroposterior, lateral, mortise, and additional oblique view of the ankle were obtained. COMPARISON: None. FINDINGS: There is soft tissue swelling of the ankle. Bone alignment is normal. No fracture or osteoc hondral lesion. A plantar calcaneal enthesophyte is noted. IMPRESSION: 1. Ankle swelling without acute osseous abnormality. Reviewed, dictated and finalized at location L.
[2022-12-02 09:34] LABS: Basophils Absolute Auto 0.1 K/mm3 (0.0-0.1); Eosinophils Absolute Auto 0.7 K/mm3 (0-0.3); Eosinophils Percent Auto 9.8 % (0-4.4); Hematocrit 46.5 % (42.0-52.0); Hemoglobin 15.8 g/dL (14.0-18.0); Immature Granulocyte Absolute 0.02 K/mm3 (0.00-0.031); Immature Granulocyte Percent A 0.3 % (0-0.5); Lymphocytes Absolute Auto 2.04 K/mm3 (0.9-3.2); Lymphocytes Percent Auto 27.9 % (18.3-44.2); Mean Corpuscular Hemoglobin 30.7 pg (26-34); Mean Corpuscular Volume 90.3 fl (80-100); Mean Platelet Volume 9.3 fl (7.4-10.4); Monocytes Absolute Auto 0.6 K/mm3 (0.1-0.6); Monocytes Percent Auto 7.8 % (2.6-8.5); Neutrophils Absolute Auto 3.9 K/mm3 (1.3-6.7); Neutrophils Percent Auto 53.2 % (45.5-73.1); Platelet Count Result 258 k/mm3 (150-375); Red Blood Count 5.15 M/mm3 (4.6-6.20); Red Cell Distribution Width 12.5 % (11.5-14.5); White Blood Count 7.3 K/mm3 (4.5-10.0)
[2022-12-02 10:07] LABS: Erythrocyte Sedimentation Rate 1 mm/hr (0-20)
[2022-12-02 10:37] LABS: Anion Gap 3 mmol/L (8-16); Blood Urea Nitrogen 14 mg/dL (9-20); CRP < 0.5 mg/dL (<1.0); Carbon Dioxide 31 mmol/L (22-30); Chloride 103 mmol/L (98-107); Estimated Glomerular Filt Rate > 60; Glucose 101 mg/dL (65-110); Potassium 4.3 mmol/L (3.4-5.0); Sodium 137 mmol/L (137-145); Uric Acid 5.7 mg/dL (3.5-8.5)
== END 2022-12-02 08:15 | disposition home or self-care (01) ==
PROVIDERS: PCP Internal Medicine; Visit Provider Internal Medicine
DX: M25.572 Pain in left ankle and joints of left foot (principal); M25.472 Effusion, left ankle; Z79.899 Other long term (current) drug therapy; M79.89 Other specified soft tissue disorders; M79.605 Pain in left leg
CPT/HCPCS: 36415; 73610; 80048; 84550; 85025; 85652; 86140; 93971

== ENCOUNTER 2023-05-03 07:34 | Outpatient (CLI) | payer OTHER, SELFPAY ==
[2023-05-03 08:17] LABS: Cholesterol 124 mg/dL (0-200); HDL Direct 50 mg/dL; Triglycerides 53 mg/dL (<150)
[2023-05-03 08:27] LABS: LDL Cholesterol Direct 58 mg/dL
[2023-05-03 08:52] LABS: Free T4 Free Thyroxine 1.44 ng/mL (0.78-2.19); Vitamin D 25 Hydroxy 23.8 ng/mL
[2023-05-03 09:23] LABS: Hemoglobin A1C 5.8 % (<5.7)
== END 2023-05-03 07:35 | disposition home or self-care (01) ==
LOC: ANHLAB 07:36
PROVIDERS: PCP Internal Medicine; Visit Provider Internal Medicine
DX: Z13.1 Encounter for screening for diabetes mellitus (principal); Z79.899 Other long term (current) drug therapy; E78.5 Hyperlipidemia, unspecified; E55.9 Vitamin D deficiency, unspecified; E03.9 Hypothyroidism, unspecified
CPT/HCPCS: 36415; 80061; 82306; 83036; 84439; 84443

== ENCOUNTER 2023-05-14 07:06 | Outpatient (CLI) | payer OTHER, SELFPAY ==
--- NOTE | ~2023-05-14 | XR_ITS ---
XR cervical spine 4-5V 05/14/2023 07:28 Indication: Neck pain Procedure: 5 views cervical spine including flexion/extension views Comparison: No prior studies for comparison. Findings: Vertebral body heights are maintained. No prevertebral soft tissue swelling. There is disc narrowing and endplate hypertrophy at C5-6 and C6-7. No significant alteration of alignment with flex ion/extension. There is moderate multilevel facet and uncinate hypertrophy. Lung apices are normal. O dontoid process is unremarkable. Impression: 1: Moderate cervical spondylosis. Reviewed, dictated and finalized at location A. N KEEPER Impression: 1: Moderate cervical spondylosis.
== END 2023-05-14 07:07 | disposition home or self-care (01) ==
PROVIDERS: PCP Internal Medicine; Visit Provider Internal Medicine
DX: M47.892 Other spondylosis, cervical region (principal)
CPT/HCPCS: 72050

== ENCOUNTER 2023-07-06 08:00 | Outpatient (RCR) | payer OTHER, SELFPAY ==
--- NOTE | 2023-06-01 16:10 | OPREHPOC ---
Outpatient Therapy Plan of Care This is a Multidisciplinary Plan of Care that may contain components documented by all disciplines (PT, OT, and ST.) PT Problem 1 PT Problem #1 Knowledge Deficit PT Goal 1 Goal 1* indep with HEP 2* correct posture with exercises PT Problem 2 PT Problem #2 Pain PT Goal 1 Goal 1* decrease pain to 2/10 at worst PT Problem 3 PT Problem #3 Impaired Flexibility PT Goal 1 Goal decrease cervical musculature tightness, with increase flexibility to increase mobility of head 1* active cervical rotation R 40' 2* no pain with cervical rotation R 3* no pain with cervical extension PT Problem 4 PT Problem #4 Impaired Strength PT Goal 1 Goal increase strength of cervical - thoracic area, to improve posture and position of neck and shoulder 1* pt able to perform 20 reps of thoracic strengthening exercise in standing 2* pt stand with correct cervical and shoulder position
--- NOTE | 2023-06-01 16:10 | PTOPEVAL1 ---
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 He is able to perform all of his home and work tasks, with increased pain. With changing the position of his neck, he can ease the pain. The xray report stated moderate changes of his cervical spine. With the evaluation: he has decreased cervical rotation to R with pain and extension causes pain; his posture in standing, with thoracic spinal curvature, with L shoulder elevated and rounded posture; there are spasms through his cervical paraspinals, upper traps and SCM. Skilled PT services are indicated for modalities to decrease pain and spasms, therapeutic exercises to increase cervical ROM and cervical-thoracic strength, with education for home exercises and posture correction. Plan of Care Interventions Electrical Stimulation,Hot Pack/Cold Pack,Manual Therapy,Mechanical Traction,Neuro Re-education, Patient Education,Therapeutic Activities, Therapeutic Exercise,Ultrasound,Other Other Interventions taping, [facility] PT Services Indicated Yes
--- NOTE | 2023-07-06 08:53 | PTOPDC ---
Assessment and note entered by Jeane Rivera, PT Discharge Information Assessment Status Discharge Diagnosis cervicalgia Onset Mar 2023 Subjective Information neck is about the same, but have a little more movement in neck; can reposition to ease pain when it hits; been doing the exercises and stretches; after therapy, neck is a little looser, but still there when move wrong; Reported Pain Level Pain Score Self Report Additional Pain Score Comments pain range in the week 0-3/10; numbness and tingling in L side shoulder blade; decrease pain with rotation of head to L; traction increase pain: towards end of day is not taking any pain meds; no issues with sleeping- not awaken from sleep and is not awakening with neck pain use of theracane massage tool for self massage over upper trap R; Assessment PT Clinical Summary Randy has received 6 PT sessions. Compared to the initial evaluation: pain rating at the low is same at 0/10 and worst decreased by 1, from 4 to 3/10; continues to have tingling and numbness over upper traps; increase cervical rotation R by 15' and L decreased by 10' each and no longer have pain with cervical active motions; increase thoracic/scapular strength and posture awareness; education completed for HEP and posture with work tasks and computer work. The goals were partially met. Discharge PT services. To continue with HEP. To follow up with as needed. Plan of Care PT Services Indicated No
== END 2023-07-06 10:52 | disposition home or self-care (01) ==
LOC: ANHPT 08:00
PROVIDERS: PCP Internal Medicine; Visit Provider Internal Medicine
DX: M54.2 Cervicalgia (principal)
CPT/HCPCS: 97012; 97035; 97110; 97161; 97530

== ENCOUNTER 2023-11-09 07:23 | Outpatient (CLI) | payer OTHER, SELFPAY ==
[2023-11-09 08:16] LABS: Alanine Aminotransferase 26 U/L (6-50); Albumin Level 4.4 g/dL (3.5-5.1); Alkaline Phosphatase 72 U/L (38-126); Anion Gap 7 mmol/L (4-12); Aspartate Amino Transferase 27 U/L (17-59); Bilirubin,Total 1.1 mg/dL (0.2-1.3); Blood Urea Nitrogen 13 mg/dL (9-20); Calcium 9.4 mg/dL (8.4-10.2); Carbon Dioxide 26 mmol/L (22-30); Chloride 106 mmol/L (98-107); Cholesterol 116 mg/dL (0-200); Estimated Glomerular Filt Rate > 60; Glucose 94 mg/dL (65-110); HDL Direct 42 mg/dL; Potassium 4.2 mmol/L (3.4-5.0); Sodium 139 mmol/L (137-145); Triglycerides 76 mg/dL (<150)
[2023-11-09 08:27] LABS: LDL Cholesterol Direct 58 mg/dL
[2023-11-09 08:42] LABS: Hemoglobin A1C 5.3 % (<5.7)
[2023-11-09 08:46] LABS: Thyroid Stimulating Hormone 0.325 uIU/mL (0.465-4.680)
[2023-11-09 08:54] LABS: Free T4 Free Thyroxine 1.33 ng/mL (0.78-2.19); Vitamin D 25 Hydroxy 42.7 ng/mL
== END 2023-11-09 07:24 | disposition home or self-care (01) ==
PROVIDERS: PCP Internal Medicine; Referring Provider Internal Medicine; Visit Provider Urology
DX: E55.9 Vitamin D deficiency, unspecified (principal); Z13.1 Encounter for screening for diabetes mellitus; Z79.899 Other long term (current) drug therapy; E78.5 Hyperlipidemia, unspecified; E03.9 Hypothyroidism, unspecified; R97.20 Elevated prostate specific antigen [PSA]
CPT/HCPCS: 36415; 80053; 80061; 82306; 83036; 84153; 84439; 84443

== ENCOUNTER 2024-05-05 07:43 | Outpatient (CLI) | payer OTHER, SELFPAY ==
[2024-05-05 08:10] LABS: Basophils Absolute Auto 0.1 K/mm3 (0.0-0.1); Basophils Percent Auto 0.9 % (0.2-1.2); Eosinophils Absolute Auto 0.6 K/mm3 (0-0.3); Eosinophils Percent Auto 10.5 % (0-4.4); Hematocrit 44.6 % (42.0-52.0); Hemoglobin 15.6 g/dL (14.0-18.0); Immature Granulocyte Absolute 0.01 K/mm3 (0.00-0.031); Immature Granulocyte Percent A 0.2 % (0-0.5); Lymphocytes Absolute Auto 1.66 K/mm3 (0.9-3.2); Lymphocytes Percent Auto 30.5 % (18.3-44.2); Mean Corpuscular Hemoglobin 31.7 pg (26-34); Mean Corpuscular Volume 90.7 fl (80-100); Mean Platelet Volume 9.8 fl (7.4-10.4); Monocytes Absolute Auto 0.5 K/mm3 (0.1-0.6); Monocytes Percent Auto 9.2 % (2.6-8.5); Neutrophils Absolute Auto 2.7 K/mm3 (1.3-6.7); Neutrophils Percent Auto 48.7 % (45.5-73.1); Platelet Count Result 202 k/mm3 (150-375); Red Blood Count 4.92 M/mm3 (4.6-6.20); White Blood Count 5.5 K/mm3 (4.5-10.0)
[2024-05-05 08:22] LABS: Alanine Aminotransferase 36 U/L (6-50); Albumin Level 4.4 g/dL (3.5-5.1); Alkaline Phosphatase 79 U/L (38-126); Anion Gap 7 mmol/L (4-12); Aspartate Amino Transferase 37 U/L (17-59); Bilirubin,Total 1.2 mg/dL (0.2-1.3); Blood Urea Nitrogen 13 mg/dL (9-20); Calcium 9.4 mg/dL (8.4-10.2); Carbon Dioxide 26 mmol/L (22-30); Chloride 103 mmol/L (98-107); Cholesterol 101 mg/dL (0-200); Estimated Glomerular Filt Rate > 60; Glucose 83 mg/dL (65-110); HDL Direct 45 mg/dL; Sodium 136 mmol/L (137-145); Triglycerides 55 mg/dL (<150)
[2024-05-05 08:33] LABS: LDL Cholesterol Direct 36 mg/dL
[2024-05-05 08:44] LABS: Free T4 Free Thyroxine 1.49 ng/dL (0.78-2.19)
[2024-05-05 08:51] LABS: Prostate Specific Antigen 3.9 ng/mL (< OR = 4.0); Thyroid Stimulating Hormone 0.488 uIU/mL (0.465-4.680)
[2024-05-05 09:04] LABS: Hemoglobin A1C 5.5 % (<5.7)
--- OUTSIDE RECORDS SUMMARY | 2024-05-08 21:34 | XMS_ITS | Encounter Summary ---
Author Organization [facility] Health Address [address] [place] [address] Care Team Providers Care Lead Assembler Name Role Phone Conner Newman MD Primary Care Provider [phone] Reason for Visit * Reason Comments Follow-up Encounter Details Date Type Department Care Team (Late st Contact Info) Description 07/25/2023 10:10 AM LEAD LOADER Office Visit [facility] - Dermatology [address] [place] [address], [facility] [place] [place] [id number] Janet Go MD [address] [place] [address] 3 [place] [id number] Actinic skin damage (Primary Dx); Lentigines; Seborrheic keratoses; Multiple benign melanocytic nevi of upper and lower extremities and trunk; Onychomycosis; Tinea pedis of both feet; Inflamed seborrheic keratosis; Actinic keratosis Social History Tobacco Use Types Packs/Day Years Used Date Smoking Tobacco: Never Smokeless Tobacco: Never Alcohol Use Standard Drinks/Week Comments Yes 1 (1 standard drink = 0.6 oz pur e alcohol) Sex and Gender Information Value Date Recorded Sex Assigned at Male 03/15/2021 9:43 AM CDT Gender Identity Male 03/15/2021 9:43 AM CDT Sexual Orientation Straight 03/15/2021 9: 43 AM CDT documented as of this encounter Patient Instructions * Patient Instructions* Tucker Jaquez MD - 07/25/2023 10:12 AM LEAD LOADER Thank you for visiting the [facility] today! Please continue the following instructions as we discussed in clinic today: 1) During your skin exam today a number of precancerous spots were frozen with liquid nitrogen. Thecare instructions are found below 2) For the itching on your shoulder area we recommend seeing a spine surgeon for assessment. You can also try over the counter Cerave Anti-itch cream 3) Below are our sun protection recommendations. Please return to clinic in 12 months POST CRYOTHERAPY CARE Redness and swelling may occur within minutes of thawing. Avoid any trauma to the treated site. A clear blister or a blood blister may appear on the skin in the treated area within 12 to 48 hours. If the blister is painful, you may drain the blister using a sterile pin. To sterilize the pin, hold it over the flame of a match or wipe the tip with an alcohol-soaked cotton ball. Poke a hole in the blister and drain thefluid. Do not remove the skin of the blister; this blister acts as a bandage for the area. After 24 hours, clean the areas twice a day with mild soap and water. Pat dry and apply petroleum jelly (plain vaseline) with a cotton swab. The petroleum jelly will help keep the area moist, help prevent a scab from forming, and less the chance of infection. If you wish, you may cover the area with a bandage. Do not apply any topical medications or medicated pads to open skin unless otherwise directed. Notify your physician if you have: Yellowish/greenish discharge from the treated area Increasing tenderness or pain Warmth of the area and/or fever over 101 F Phone Numbers: [facility] office on [facility] - office hours number: [phone] [place] Office - office hours number: [phone] After hours on-call number: [phone] (ask the vacuum pan operator for dermatology on-call) SKIN CANCER PREVENTION: - We recommend DAILY sun protection with SPF 30 or above - Do monthly skin exams and examine your moles for any changes. - Alert us of any moles that are asymmetrical, have irregular borders, have more than one color, are larger than end of a pencil eraser, or has been changing over time. (These are the A-B-C-D-Es of Melanoma). - See below for sun screen recommendations. SUNSCREENS with UVA and UVB PROTECTION Sunlight consists of two types of light that can cause or worsen most skin problems: UVA (ultraviolet A) UVB (ultraviolet B) Brown spots, wrinkles Sunburn Aging Skin cancers Rosacea Tanning Less variation with seasons Strongest in summer All year round, All day strong Peak hours 10am to 2pm No rating system available Passes through glass and clouds Sunscreens that block both UVA and UVB light (broad spectrum) contain: Zinc Oxide (should contain at least 5% zinc oxide) - preferred ingredient Titanium Dioxide Tips/Suggestions SPF of 30 or higher (SPF rates UVB protection) Zinc Oxide or other UVA block such as Helioplex or Anthelios in product Remember there is no safe UV light...so there is no such thing as a safe suntan. Apply sunscreen daily (even in winter and on cloudy days) and reapply every 2 to 4 hours depending on activity. Approximately one ounce of sunscreen is necessary to adequately cover the entire body. Good brands include Nancy COLLIER, Skinmedica, Aveeno, Cetaphil, Cerave, Neutrogena, Vanicream and many others (at least SPF 30!). Our favorite brand is the one that you will wear! LOADER documented in this encounter Progress Notes * Tucker Jaquez MD - 07/25/2023 9:51 AM CST Chief Complaint Patient presents with ??? Follow-up HPI: Randy Vaca a 63 year old male presents for Follow-up. LV: 07/12/2022 Concerns: 1. Patient has a spot on his scalp that is new since his last visit. It is usually symptomatic, butif he touches it then he becomes aware of it and will touch it a lot. Personal history of skin cancer: AKs ROS: No other skin complaints Allergies and medications were reviewed and verified. Past medical history, social history and family history were reviewed. PE: ? No acute distress. ? Mood clear/affect appropriate. ? Alert and oriented. ? Mucous membranes moist, lips free of lesions. ? Sclera anicteric, conjunctiva clear. Skin exam was conducted to include the: scalp, face, lips, lids/conjunctiva, ears, neck, chest, back, abdomen, right and left hands and forearms, right and left leg and feet, (FBSE) and was normal with the following exceptions: - Multiple 2-6 mm alvarez brown macules and papules and skin colored papules on face, trunk and extremities - Multiple alvarez to light brown macules on face, shoulders and arms - Many alvarez to brown waxy/hyperkeratotic stuck on papules on trunk - pink scaly/gritty macules with poorly defined borders on the scalp = 1 in summation A/P: Randy Barajas was seen today for follow-up. Diagnoses and all orders for this visit: Actinic Skin Damage Lentigines -Marker of UVR damage -Increased risk for skin cancer -Advised routine skin monitoring -Wear daily OTC SPF 50+, Broad Spectrum Multiple benign melanocytic nevi of upper and lower extremities and trunk - None atypical or more concerning than others on exam today - Counseled on importance of daily sun protection, and monthly self skin exams - Reviewed ABCDEs of melanoma - Advised sun protective behaviors and regular sun screen use - Annual FBSE Seborrheic keratoses - Benign, reassurance Actinic Keratosis - Counseled on diagnosis, etiology, natural disease course- including pre- malignant nature of lesions and association with sun exposure - [address]; left mid scalp - Wound care instructions provided - Counseled on importance of daily sun protection (SPF 30+, UVA/UVB) and monthly self skin exams Irritated Seborrheic Keratosis - Discussed benign potential - Fully reviewed treatment options with patient including indications, risks, benefits, alternatives to LN2 - pt desires treatment - Cryo x 1 lesion, 6-7 second freeze time x 1 cycle; left anterior scalp - Wound care reviewed - Post cryo handout given Onychomycosis Tinea pedis of both feet Not well controlled - Discussed diagnosis, typical course, and treatment options - continue ketoconazole 2% cream weekly for maintenance - Advised to keep feet dry and clean RTC 12 months MDM based billing (click [email or web address] for SLU smart form; click [email or web address] for Epic TIME based billing). [employer] Billing Guide Tucker Jaquez MD [facility] Dermatology Resident PGY4 LOADER Associated attestation - Janet Go MD - 07/25/2023 1:58 PM LEAD LOADER I have seen and examined the patient with the resident and I agree with the findings and plan of care as documented by the resident. Date of Service: 07/25/2023 Janet Go MD A procedure was preformed. I preformed the procedure. See procedure note. Zach Go MD documented in this encounter Procedure Notes * Tucker Jaquez MD - 07/25/2023 10:16 AM CSTAssociated Order(s): PROC DESTRUCT BENIGN LESION NOT SKIN TAG Procedure(s): NC DESTRUCT BENIGN LESION, 1-14 Pre-Procedure Diagnose(s): Inflamed seborrheic keratosis Diagnosis and treatment options discussed. Cryotherapy (Liquid Nitrogen) to 1 lesion for 5 seconds each. Number of cycles: 1. Wound care reviewed. LOADER Associated attestation - Janet Go MD - 07/25/2023 1:58 PM LEAD LOADER A procedure was preformed. I preformed the procedure. See procedure note. Zach Go MD * Tucker Jaquez MD - 07/25/2023 10:16 AM CSTAssociated Order(s): PROC DESTRUCTION OF PRE-MALIGNANT LESIONS Procedure(s): NC DESTROY PREMALIG LESION, 1ST LESION Pre-Procedure Diagnose(s): Actinic keratosis Diagnosis and treatment options discussed. Cryotherapy (Liquid Nitrogen) to 1 lesion for 4-6 seconds. Number of cycles: 1. Wound care reviewed. LOADER Associated attestation - Janet Go MD - 07/25/2023 1:58 PM LEAD LOADER A procedure was preformed. I preformed the procedure. See procedure note. Zach Go MD documented in this encounter Plan of Treatment Upcoming Encounters Date Type Department Care Team (Late st Contact Info) Description 07/23/2024 9:10 AM LEAD LOADER Office Visit [facility] - Dermatology [address] [place] [address], [place] [id number] Janet Go MD [address] [place] [address] [address] [place] [id number] documented as of this encounter Procedures Procedure Name Priority Date/Time Associated Diagnosis Comments NC DESTRUCT BENIGN LESION, 1-14 Routine 07/25/2023 10:16 AM LEAD LOADER Inflamed seborrheic keratosis NC DESTROY PREMALIG LESION, 1ST LESION Routine 07/25/2023 10:16 AM LEAD LOADER Actinic keratosis documented in this encounter Results * NC DESTRUCT BENIGN LESION, 1-14 (07/25/2023 10:16 AM LEAD LOADER) Narrative Janet Go MD - 07/25/2023 10:16 AM LEAD LOADER Tucker Jaquez MD ? 07/25/2023 10:16 AM Diagnosis and treatment options discussed. Cryotherapy (Liquid Nitrogen) to 1 lesion for 5 seconds each. Number of cycles: 1. Wound care reviewed. Janet Go MD PROCEDURE/MINOR SURG ICAL ORDERABLES * NC DESTROY PREMALIG LESION, 1ST LESION (07/25/2023 10:16 AM LEAD LOADER) Narrative Janet Go MD - 07/25/2023 10:16 AM LEAD LOADER Tucker Jaquez MD ? 07/25/2023 10:16 AM Diagnosis and treatment options discussed. Cryotherapy (Liquid Nitrogen) to 1 lesion for 4-6 seconds. Number of cycles: 1. Wound care reviewed. Janet Go MD PROCEDURE/MINOR SURG ICAL ORDERABLES documented in this encounter Visit Diagnoses Diagnosis Actinic skin damage- Primary Other chronic dermatitis due to solar radiation Lentigines Other dyschromia Seborrheic keratoses Multiple benign melanocytic nevi of upper and lower extremities and trunk Onychomycosis Dermatophytosis of nail Tinea pedis of both feet Inflamed seborrheic keratosis Actinic keratosis documented in this encounter Care Teams Lead Assembler Relationship Specialty Start Date End Date Conner Newman MD [address] [place] [id number] PCP - General 03/19/08 documented as of this encounter
--- OUTSIDE RECORDS SUMMARY | 2024-05-08 21:34 | XMS_ITS | Encounter Summary ---
Author Organization [facility] Health Address [address] [place] [address] Care Team Providers Care Beer Runner Name Role Phone Conner Newman MD Primary Care Provider [phone] Encounter Details Date Type Department Care Team (Latest Contact Info) Description 07/25/2023 Travel Social History Tobacco Use Types Packs/Day Years [...] AM CDT documented as of this encounter Plan of Treatment Upcoming Encounters Date Type Department Care Team (Late st Contact Info) Description 07/23/2024 9:10 AM APPLIANCE REPAIR TECHNICIAN Office Visit [facility] - Dermatology [address] [place] [address], [place] [phone] Janet Go MD [address] [place] [address] 3 [place] [address] documented as of this encounter Visit Diagnoses Not on filedocumented in this encounter Care Teams Beer Runner Relationship Specialty Start Date End Date Conner Newman MD [address] [facility] [place] [address] PCP - General 03/19/08 documented as of this encounter
--- OUTSIDE RECORDS SUMMARY | 2024-05-08 21:34 | XMS_ITS | Encounter Summary ---
Author Organization [facility] Health Address [address] [facility] [place] [address] Care Team Providers Care Last Repairer Helper Name Role Phone Conner Newman MD Primary Care Provider [phone] Reason for Visit * Reason Comments Yearly FBSC, due to monitor ing skin lesions and moles, nothing new or concerning per pt Encounter Details Date Type Department Care Team (Late st Contact Info) Description 11/15/2018 2:00 PM CDT Office Visit [facility] Dermatology [address] [place] [address] Janet Go MD [address] [facility] 3L [place] [phone] Actinic keratoses (Primary Dx); Onychomycosis; Lentigines; Multiple benign nevi; Seborrheic keratosis Social History Tobacco Use Types Packs/Day [...] this encounter Patient Instructions * Patient Instructions* Ladan Mueller MD - 11/15/2018 2:34 PM CDT It was a pleasure seeing you in clinic today. We will follow up with you in 1 year. For your toenail fungus, we recommend using a topical medication to prevent further spreading to other toenails as well as to others. - Use Ketoconazole 2% cream between the toes and underneath the feet twice a day for 2 weeks, and then once a week for maintenance purposes. When you are outside, we recommend wearing sunscreen with SPF 30 or more and sun protection hats (Coolibar coupon provided to you in clinic today). We froze 2 pre-cancer spots today with liquid nitrogen. Please follow the below wound care instructions: POST CRYOTHERAPY CARE Redness and swelling may [...] water. Pat dry and apply petroleum jelly with a cotton swab. The petroleum jelly will help keep the area moist, help prevent a scab fromforming, and less the chance of infection. If you wish, you may cover the area with a bandage. Notify your physician if you have: Yellowish/greenish discharge from the treated area Increasing tenderness or pain Warmth of the area and/or fever over 101 F Red streaks up the arm or leg close to the treated area documented in this encounter Progress Notes * Janet Go MD - 11/15/2018 2:32 PM CDT Attending Physician's Note Fellow's assessment and care plan reviewed; patient interviewed and examined. I agree with the history of present illness, physical exam, and assessment and plan as documented by the Fellow today withthe following annotations/corrections: History of present illness/Physical exam: total body skin exam, roblero macules on extremities and face, trunk with regular brown macules, scaly papules on scalp Assessment and plan: Lentigines / Nevi, clinically benign - ABCDEs reviewed. Onychomycosis Declines treatment Ketoconazole Cream bid x 2 weeks then qd AK x 2 - LN2 A procedure was performed. I performed the procedure. See procedure note. Janet Go MD 1 year Janet Go MD * Ladan Mueller MD - 11/15/2018 2:18 PM CDT Chief Complaint Patient presents with ??? Yearly FBSC, due to monitoring skin lesions and moles, nothing new or concerning per pt HPI: Randy Vaca a 58 year old male presents for skin exam. Past was last seen in clinic on 12/06/16. At that visit, no concerning findings noted. Patient had declined treatemnt of toenail onychomycosis due to prior failure of treatment with Jublia. Concerns: None Patient is not interested in treatment of toenail fungus at this time. Personal history of skin cancer: none Patient recently underwent gallbladder surgery. PE: No acute distress. Mood clear/affect appropriate. Alert and oriented. Mucous membranes moist. Sclera anicteric. Full body skin exam was conducted to include the scalp, face, lips/teeth, lids/conjunctiva, ears, neck, chest, abdomen, back, groin/buttock, right and left hands and forearms, right and left leg and feet and was normal with the following exceptions: - Thickened, yellow toenails on 1,2,5 digits of L foot and 1 and 5 digits of R foot - Numerous scattered, 2-5 mm, evenly pigmented, roblero to brown macules and papules on trunk and extremities - Roblero macules dispersed in sun exposed areas, primarily on face and extremities - Roblero-brown waxy papules on bilateral arms - [place] rough scaly papules x2 on frontal scalp A/P: Randy was seen today for yearly. Diagnoses and all orders for this visit: Actinic keratoses - PROC DESTRUCTION OF PRE-MALIGNANT LESIONS - Premalignant potential discussed - Cryotherapy performed today x2 lesions (see procedure note) - Wound care reviewed, post-cryo handout given - Sun protection reviewed Onychomycosis - Patient declines PO Lamisil today due to hepatic side effects - To help control spreading, advised pt to start ketoconazole (NIZORAL) 2 % cream; Apply to betweentoes and underneath feet twice daily for 2 weeks, then once weekly for maintenance. 90 days supply. Lentigines - Benign, patient reassured - Skin cancer, sun protection, and photoaging discussed - Sunscreen handout provided Multiple benign nevi - No atypical or concerning moles on exam today - Reviewed ABCDEs of melanoma - Sun protection reviewed, handout provided - Annual FBSE recommended Seborrheic keratosis - Benign, reassured patient. RTC in 1 year. Patient was seen, examined, and discussed with attending physician, Dr. Go. Ladan Mueller MD [facility], Department of Dermatology documented in this encounter Procedure Notes * Ladan Mueller MD - 11/15/2018 11:23 PM CDTAssociated Order(s): PROC DESTRUCTION OF PRE-MALIGNANT LESIONS Procedure(s): [place] DESTROY PREMALIG LESION, 1ST LESION; [place] DESTROY PREMALIG LESION, 2-14 Pre-Procedure Diagnose(s): Actinic keratoses Diagnosis and treatment options discussed for AK. Verbal consent obtained. ?? Cryotherapy (Liquid Nitrogen) performed to 2 lesions (frontal scalp) for 10 seconds each. Number ofcycles: 1. Wound care reviewed and post-cryotherapy handout given. Ladan Mueller MD [facility], Department of Dermatology Associated attestation - Janet Go MD - 11/16/2018 12:12 PM CDT A procedure was performed. I performed the procedure. See procedure note. Janet Go MD documented in this encounter Plan of Treatment Upcoming Encounters Date Type Department Care Team (Late st Contact Info) Description 07/23/2024 9:10 AM ELECTRICIAN MACHINE SHOP Office Visit [facility] - Dermatology [address] [facility], [place] [address] Janet Go MD [facility] [facility] 3L [place] [address] documented as of this encounter Procedures Procedure Name Priority Date/Time Associated Diagnosis Comments [place] DESTROY PREMALIG LESION, 1ST LESION Routine 11/16/2018 12:12 PM CDT Actinic keratoses [place] DESTROY PREMALIG LESION, 2-14 Routine 11/16/2018 12:12 PM CDT Actinic keratoses documented in this encounter Results * [place] DESTROY PREMALIG LESION, 2-14, [place] DESTROY PREMALIG LESION, 1ST LESION (11/16/2018 12:12 PM CDT) Narrative Janet Go MD - 11/16/2018 12:12 PM CDT Ladan Mueller MD ? 11/15/2018 11:24 PM Diagnosis and treatment options discussed for AK. Verbal consent obtained. ?? Cryotherapy (Liquid Nitrogen) performed to 2 lesions (frontal scalp) for 10 seconds each. Number of cycles: 1. Wound care reviewed and post-cryotherapy handout given. Ladan Mueller MD [facility], Department of Dermatology Janet Go MD PROCEDURE/MINOR SURG ICAL ORDERABLES documented in this encounter Visit Diagnoses Diagnosis Actinic keratoses- Primary Actinic keratosis Onychomycosis Dermatophytosis of nail Lentigines Other dyschromia Multiple benign nevi Benign neoplasm of skin, site unspecified Seborrheic keratosis documented in this encounter Care Teams Last Repairer Helper Relationship Specialty Start Date End Date Conner Newman MD [address] [place] [id number] PCP - General 03/19/08 documented as of this encounter
--- OUTSIDE RECORDS SUMMARY | 2024-05-08 21:34 | XMS_ITS | Clinical Summary ---
Author Organization [facility] Address [address] [place] [address] Care Team Providers Care Lawn Sprinkler Installer Name Role Phone Conner Newman MD Primary Care Provider Source Comments [facility],non-owned Affiliates and Associated Physician Practices is amultiple site organization consisting of ambulatory clinics and hospital sitesin [place], [place], [place] and [place]. This disclosure is being madepursuant to the Care Everywhere program and may not contain all information available regarding this patient. Last updated 18.[facility] Allergies No known active allergies Medications * Be aware that medications may not be up to date on this document. Alwaysverify current medications with the patient. Medication Sig Dispensed Refills Start Date End Date Status levothyroxine (SYNTHROID) 112 MCG tablet Take 1 (one) tablet by mouth daily before breakfast Active fluticasone-vilanter ol (Breo Ellipta) 100-25 MCG/ACT inhaler 10/21/2018 Active montelukast (SINGULAIR) 10 MG tablet Take 1 (one) tablet by mouth once daily 06/09/2021 Active rosuvastatin (CRESTOR) 10 MG tablet Take 1 (one) tablet by mouth every other day as needed 06/09/2021 Active cetirizine (ZYRTEC ALLERGY) 10 MG gel capsule Take 1 (one) capsule by mouth once daily Active niacin CR 500 MG capsule Take 1 (one) capsule by mouth once daily Active ketoconazole (Nizoral) 2 % creamIndications:Sofya chomycosis Apply to between toes and underneath feet twice daily for 2 weeks, then once weekly for maintenance. 90 days supply. 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 (F LUZONE; FLULAVAL; FLUARIX; AFLURIA QUADRIVALENT; 6MO+), 0.5 ML (IIV4) 03/25/2022,04/13/2021,03/10/2020 TDAP, HISTORIC VACCINE 09/05/2013 iNFLUENZA VACCINE, RECOM-WEBB, QUADR. (FLUBLOCK QUADRIVALENT; 18Y+) (RIV4) 03/29/2019 Family History Medical History Relation Name Comments Allergy (Severe) Neg Hx Asthma Neg Hx CVA Neg Hx Cancer Neg Hx Cancer - Breast Neg Hx Cancer - Other Neg Hx Cancer - Skin, Melanoma Neg Hx Cancer - Skin, Non Melanoma Neg Hx Eczema Neg Hx Hemophilia Neg Hx Psoriasis Neg Hx Rashes/Skin Problems Neg Hx Social History Tobacco Use Types Packs/Day Years Used Date Smoking Tobacco: Never Smokeless Tobacco: Never Tobacco Cessation:Counseling Given: Not Answered Alcohol Use Standard Drinks/Week Comments Yes 1 (1 standard drink = 0.6 oz pur e alcohol) Sex and Gender Information Value Date Recorded Sex Assigned at Male 03/15/2021 9:43 AM CDT Gender Identity Male 03/15/2021 9:43 AM CDT Sexual Orientation Straight 03/15/2021 9: 43 AM CDT Plan of Treatment Upcoming Encounters Date Type Department Care Team (Late st Contact Info) Description 07/23/2024 9:10 AM ASSOCIATE DIRECTOR FINANCIAL AID Office Visit [facility] - Dermatology [address] [facility], [place] [address] Janet Go MD [address] [facility] [address] [place] [phone] Health Maintenance Due Date Last Done Comments COLOGUARD (AGES 45-75) - COLON CA SCREENING 1960 COLON MONITORING 1960 COLONOSCOPY - COLON CA SCREENING 1960 CT COLONOGRAPHY - COLON CA SCREENING 1960 Colorectal Cancer Screening 1960 FIT - COLON CA SCREENING 1960 FLEX SIG - COLON CA SCREENING 1960 HIV SCREENING 02/03/1975 HEPATITIS C SCREENING 01/30/1978 ZOSTER VACCINE (1 of 2) 02/03/2010 DEPRESSION SCREENING 05/23/2023 DTAP/TDAP/TD VACCINES (2 - Td or Tdap) 09/06/2023 09/05/2013 COVID-19 VACCINE ( - season) 2024 03/25/2022, 04/13/2021, 08/08/2020, Additional history exists INFLUENZA VACCINE (#1) 2024 3, 03/25/2022, 04/13/2021, Additional history exists Respiratory Syncytial Virus (RSV) Vaccine Pt: or over 60 yrs (1 - 1-dose 75+ series) 02/03/2035 HEPATITIS B VACCINE Aged Out No longe r eligible based on patient's age to complete this topic HIB VACCINE Aged Out No longer eligi ble based on patient's age to complete this topic HPV VACCINE Aged Out No longer eligi ble based on patient's age to complete this topic MENINGOCOCCAL VACCINE Aged Out No paris latrell eligible based on patient's age to complete this topic PNEUMOCOCCAL VACCINE Aged Out No long er eligible based on patient's age to complete this topic Care Teams Lawn Sprinkler Installer Relationship Specialty Start Date End Date Conner Newman MD [address] [place] [address] PCP - General 03/19/08
--- OUTSIDE RECORDS SUMMARY | 2024-05-08 21:34 | XMS_ITS | Encounter Summary ---
Author Organization [facility] Address [address] [place] [address] Care Team Providers Care Health/Safety Job Titles Name Role Phone Conner Newman MD Primary Care Provider [phone] Reason for Visit * Reason Comments Full Body Skin Examination lesions on he ad and left wrist Encounter Details Date Type Department Care Team (Late st Contact Info) Description 06/29/2021 9:20 AM COPY CLERK Office Visit [facility] General Dermatology [address] [place] [address], [facility] [place] [phone] Janet Go MD [address] [place] [address] [address] [place] [id number] Actinic keratosis (Primary Dx); Seborrheic keratoses; Lentigines; Actinic skin damage; Multiple benign melanocytic nevi of upper and lower extremities and trunk; Inflamed seborrheic keratosis; Onychomycosis Social History Tobacco Use Types Packs/Day Years [...] * Patient Instructions* Tucker Jaquez MD - 06/29/2021 9:19 AM COPY CLERK Thank you for visiting the [facility] D[facility]ology [facility] today! Please continue the following instructionsas we discussed in clinic today: 1) On your skin exam today we froze some precancerous spots. The care instructions are attached below. We also froze the seborrheic keratoses spots on your left hand. 2) You can continue doing the Nizoral cream weekly on your feet. 3) You can use the urea cream that we have previously discussed for the spot on your left thumb. Itcan help to soften up the thickened skin. 4) Below are our sun protection recommendations. Please return to clinic in 12 months Online scheduling is now available with your provider in this department. Please visit [email or web address] to schedule your next appointment online. SKIN CANCER PREVENTION: - We recommend DAILY [...] UVA and UVB light (broad spectrum) contain: ?? Zinc Oxide (should contain at least 5% zinc oxide) - preferred ingredient ?? Titanium Dioxide Tips/Suggestions ?? SPF of 30 or higher (SPF rates UVB protection) ?? Zinc Oxide or other UVA block such as Helioplex or Anthelios in product ?? Remember there is no safe UV light...so there is no such thing as a safe suntan. ?? Apply sunscreen daily (even in winter and on cloudy days) and reapply every 2 to 4 hours depending on activity. Approximately one ounce of sunscreen is necessary to adequately cover the entire body. Good brands include Nancy COLLIER, Skinmedica, Aveeno, Cetaphil, Cerave, Neutrogena, Vanicream and many others (at least SPF 30!). Our favorite brand is the one that you will wear! POST CRYOTHERAPY CARE ?? Redness and swelling may occur within minutes of thawing. ?? Avoid any trauma to the treated site. ?? A clear blister or a blood blister may appear on the skin in the treated area within 12 to 48 hours. ?? If the blister is painful, you may drain the blister using a sterile pin. To sterilize the pin, hold it over the flame of a match or wipe the tip with an alcohol-soaked cotton ball. Poke a hole inthe blister and drain the fluid. Do not remove the skin of the blister; this blister acts as a bandage for the area. ?? After 24 hours, clean the areas twice a day with mild soap and water. Pat dry and apply petroleum jelly with a cotton swab. The petroleum jelly will help keep the area moist, help prevent a scab from forming, and less the chance of infection. If you wish, you may cover the area with a bandage. Notify your physician if you have: ?? Yellowish/greenish discharge from the treated area ?? Increasing tenderness or pain ?? Warmth of the area and/or fever over 101 F ?? Red streaks up the arm or leg close to the treated area ?? CLERK documented in this encounter Progress Notes * Tucker Jaquez MD - 06/29/2021 9:06 AM CST Chief Complaint Patient presents with ??? Full Body Skin Examination lesions on head and left wrist HPI: Randy Vaca a 61 year old male presents for Full Body Skin Examination. LV: 11/15/2018 Concerns: 1. Patient has a lesion on his left medial wrist and dorsal hand that is frequently irritated due to the location, he would like it checked to make sure it is not skin cancer. Personal history of skin cancer: AKs ROS: No other skin complaints Allergies and medications were reviewed and verified. Past medical history, social history and family history were reviewed. PE: ??? No acute distress. ??? Mood clear/affect appropriate. ??? Alert and oriented. ??? Mucous membranes moist, lips free of lesions. ??? Sclera anicteric, conjunctiva clear. Skin exam was [...] waxy/hyperkeratotic stuck on papules on trunk - On the left medial wrist and L dorsal wrist are skin colored waxy/hyperkeratotic inflamed papules - pink scaly/gritty macules with poorly defined borders on the scalp, L brow, R brow = 5 in toto A/P: Randy was seen today for full body skin examination. Diagnoses and all orders for this visit: Actinic skin damage Actinic keratosis -- Counseled on diagnosis, etiology, natural disease course- including pre- malignant nature of lesions and association with sun exposure - [address]; L brow, right brow, vertex scalp - Wound care instructions provided - Counseled on importance of daily sun protection (SPF 30+, UVA/UVB) and monthly self skin exams - PROC DESTRUCTION OF PRE-MALIGNANT LESIONS Seborrheic keratoses - Benign, reassurance Lentigines -Marker of UVR damage -Increased risk [...] regular sun screen use - Annual FBSE Inflamed seborrheic keratosis - L medial wrist, L dorsal hand - PROC DESTRUCT BENIGN LESION NOT SKIN TAG - Wound care discussed and handout provided Onychomycosis - Patient continues to declines PO Lamisil today due to hepatic side effects - Continue ketoconazole (NIZORAL) 2 % cream; Apply once weekly for maintenance RTC 12 months MDM based billing (click SLUBillingGuide for U smart form; click LOSCALCAMB for Epic TIME based billing). SluBillingGuide Coding Rationale New or est? Established Patient Highest problem complexity: 1 or more chronic illnesses with exacerbation, progression, or side effects of treatment Highest level of risk: Low Suggested code: 68184 Tucker Jaquez MD U Dermatology Resident PGY2 CLERK Associated attestation - Janet Go MD - 07/05/2021 6:26 PM COPY CLERK I have seen and examined the patient with the resident and I agree with the findings and plan of care as documented by the resident. Date of Service: 06/29/2021 Janet Go MD A procedure was performed. I performed the procedure. See procedure note. Janet Go MD documented in this encounter Procedure Notes * Tucker Jaquez MD - 06/29/2021 9:27 AM CSTAssociated Order(s): PROC DESTRUCTION OF PRE-MALIGNANT LESIONS Procedure(s): IA DESTROY PREMALIG LESION, 1ST LESION; IA DESTROY PREMALIG LESION, 2-14 Pre-Procedure Diagnose(s): Actinic keratosis Diagnosis and treatment options discussed. Cryotherapy (Liquid Nitrogen) to 5 lesions (L brow, R brow, vertex scalp) for 4-6 seconds each. Number of cycles: 1. Wound care reviewed. CLERK Associated attestation - Janet Go MD - 07/05/2021 6:26 PM COPY CLERK A procedure was performed. I performed the procedure. See procedure note. Janet Go MD * Tucker Jaquez MD - 06/29/2021 9:27 AM CSTAssociated Order(s): PROC DESTRUCT BENIGN LESION NOT SKIN TAG Procedure(s): IA DESTRUCT BENIGN LESION, 1-14 Pre-Procedure Diagnose(s): Inflamed seborrheic keratosis Diagnosis and treatment options discussed. Cryotherapy (Liquid Nitrogen) to 2 lesions on the left medial wrist and left dorsal hand for 10 seconds each. Number of cycles: 1. Wound care reviewed. CLERK Associated attestation - Janet Go MD - 07/05/2021 6:26 PM COPY CLERK A procedure was performed. I performed the procedure. See procedure note. Janet Go MD documented in this encounter Plan of Treatment Upcoming Encounters Date Type Department Care Team (Late st Contact Info) Description 07/23/2024 9:10 AM COPY CLERK Office Visit [facility] - Dermatology [address] [place] [address], [place] [address] Janet Go MD [address] [place] [address] [address] [place] [phone] documented as of this encounter Procedures Procedure Name Priority Date/Time Associated Diagnosis Comments IA DESTROY PREMALIG LESION, 1ST LESION Routine 06/29/2021 9:27 AM COPY CLERK Actinic keratosis IA DESTROY PREMALIG LESION, 2-14 Routine 06/29/2021 9:27 AM COPY CLERK Actinic keratosis IA DESTRUCT BENIGN LESION, 1-14 Routine 06/29/2021 9:27 AM COPY CLERK Inflamed seborrheic keratosis documented in this encounter Results * IA DESTROY PREMALIG LESION, 2-14, IA DESTROY PREMALIG LESION, 1ST LESION (06/29/2021 9:27 AM COPY CLERK) Narrative Janet Go MD - 06/29/2021 9:27 AM COPY CLERK Tucker Jaquez MD ? 06/29/2021 ??9:28 AM Diagnosis and treatment options discussed. Cryotherapy (Liquid Nitrogen) to 5 lesions (L brow, R brow, vertex scalp) for 4-6 seconds each. Number of cycles: 1. Wound care reviewed. Janet Go MD PROCEDURE/MINOR SURG ICAL ORDERABLES * IA DESTRUCT BENIGN LESION, 1-14 (06/29/2021 9:27 AM COPY CLERK) Narrative Janet Go MD - 06/29/2021 9:27 AM COPY CLERK Tucker Jaquez MD ? 06/29/2021 ??9:27 AM Diagnosis and treatment options discussed. Cryotherapy (Liquid Nitrogen) to 2 lesions on the left medial wrist and left dorsal hand for 10 seconds each. Number of cycles: 1. Wound care reviewed. Janet Go MD PROCEDURE/MINOR SURG ICAL ORDERABLES documented in this encounter Visit Diagnoses Diagnosis Actinic keratosis- Primary Seborrheic keratoses Lentigines Other dyschromia Actinic skin damage Other chronic dermatitis due to solar radiation Multiple benign melanocytic nevi of upper and lower extremities and trunk Inflamed seborrheic keratosis Onychomycosis Dermatophytosis of nail documented in this encounter Care Teams Health/Safety Job Titles Relationship Specialty Start Date End Date Conner Newman MD [address] [place] [phone] PCP - General 03/19/08 documented as of this encounter
--- OUTSIDE RECORDS SUMMARY | 2024-05-08 21:34 | XMS_ITS | Continuity of Care Document ---
Author Organization [facility] Address [address] [place] [id number] Encounter [facility] Financial Number [id number] Date(s): 02/07/21 - 02/07/[address] [id number] Discharge Disposition: Home or Self Care Attending Physician: Gurpreet Padilla MD Referring Physician: Gurpreet Padilla MD
--- OUTSIDE RECORDS SUMMARY | 2024-05-08 21:34 | XMS_ITS | Referral Summary ---
Author Organization [facility] Address [address] [place] [address] Care Team Providers Care Radio Sportscaster Name Role Phone Conner Newman MD Primary Care Provider Source Comments [facility],non-owned Affiliates and Associated Physician Practices is amultiple site organization consisting of ambulatory clinics and hospital sitesin [place], [place], [place] and [place]. This disclosure is being madepursuant to the Care Everywhere program and may not contain all information available regarding this patient. Last updated 18.[facility] Allergies No known active allergies Medications * [...] RECOM-WEBB, QUADR. (FLUBLOCK QUADRIVALENT; 18Y+) (RIV4) 03/29/2019 Social History Tobacco Use Types Packs/Day Years [...] st Contact Info) Description 07/23/2024 9:10 AM DELIVERER PHARMACY Office Visit [facility] - Dermatology [address] [place] [address], [place] [phone] Janet Go MD [address] [place] [address] [address] [place] [address] Care Teams Radio Sportscaster Relationship Specialty Start Date End Date Conner Newman MD [address] [place] [address] PCP - General 03/19/08
--- OUTSIDE RECORDS SUMMARY | 2024-05-08 21:34 | XMS_ITS | Encounter Summary ---
Author Organization [facility] Health Address [address] [place] [address] Care Team Providers Care Welfare Analyst Name Role Phone Conner Newman MD Primary Care Provider [phone] Reason for Visit * Reason Comments Actinic Keratosis Annual fbse Encounter Details Date Type Department Care Team (Late st Contact Info) Description 07/12/2022 10:10 AM FABRIC WORKER FITTER Office Visit [facility] [address] [place] [address], [place] [phone] Janet Go MD [address] [place] [address] 3 DEPT [place] [id number] Multiple benign melanocytic nevi of upper and lower extremities and trunk (Primary Dx); Solar lentiginosis; Seborrheic keratosis; Onychomycosis; Tinea pedis of both feet Social History Tobacco Use Types Packs/Day Years [...] this encounter Patient Instructions * Patient Instructions* Fabiola Wagner MD - 07/12/2022 9:47 AM FABRIC WORKER FITTER Thank you for coming in for your skin check today. Please follow up in 1 year. We did not find any concerning lesions today. Continue to look for any changing, growing, or concerning spots. Remember to continue to wear sunscreen daily with at least SPF 30 to prevent skin cancer. See instructions below about skin cancer prevention and sunscreen tips. Continue ketoconazole cream twice a day to between toes and underneath feet twice daily for 2 weeks, then once weekly for maintenance SKIN CANCER PREVENTION: - We recommend DAILY [...] - See below for sun screen recommendations. SUNSCREENS: UVA and UVB PROTECTION Sunlight consists of two types of light that can cause or worsen most skin problems: UVA (ultraviolet A) UVB (ultraviolet B) Causes brown spots/sun spots Causes skin cancer Causes wrinkles Causes sunburn Causes aging Responsible for tanning Worsens rosacea Strongest in summer Less variation with seasons Peak hours 10am-2pm All year round SPF rates UVB protection All day strong No rating system available Passes through glass and clouds *Sunscreens that block both UVA and UVB light contain: Zinc Oxide (should contain at least 5% zinc oxide) Titanium Dioxide Parsol or Avobenzone (additives improve stability of Avobenzone) There are other UVA blocking ingredients but they are not as complete as these three. Tips/Suggestions 1) Always use sunscreens with SPF of 30 or higher 2) Make sure the sunscreen has zinc oxide or other UVA block such as Helioplex or Anthelios in product 3) Remember there is no safe UV light:...so there is no such thing as a safe suntan. 4) Apply sunscreen daily (even in winter and on cloudy days) and reapply every 2 to 4 hours depending on activity. 5) Approximately one ounce (a shot glass) is necessary to adequately cover the entire body. 6) Approximately one teaspoon is necessary to adequately cover the face *Face sunscreens we like: - Nancy COLLIER (you can order it online at [email or web address]. You can buy it at cosmetic suit [employer] at [place] location or at motel front desk attendant at [facility] location. It has microsized Zinc oxide and/or titanium dioxide). UV Elements Tinted Facial Sunscreen Broad Spectrum SPF 44 and UV Replenish Facial Sunscreen Broad Spectrum SPF 44 or EltaMD UV Pure Broad-Spectrum SPF 47. - Neutrogena Neutrogena?? Sensitive Skin Face Liquid Sunscreen Broad Spectrum SPF 50 - Oil of Olay complete defense daily UV moisturizer with SPF 30 or Regenerist Hydrating Moisturizerwith Mineral SPF 30 (Fragrance Free) - Cetaphil SPF 30 for normal skin or SPF 50 for dry skin. - CeraVe A.M. Facial Moisturizing Lotion SPF 30 or CeraVe Hydrating Sunscreen SPF 30 or 50 Face Lotion (for dry skin) - La Nickolas-Posay Toleriane Double Repair Face Moisturizer SPF 30 - Banana Boat Kids Tear-Free Sunscreen Lotion SPF 50 (d) - Coppertone Kids Tear Free Sunscreen Lotion SPF 50 Sunscreens that contain iron oxide may block extra visible light, and some options include: EltaMD UV Physical Tinted Facial Suncreen, TiZo 3 Tinted Face Mineral Sunscreen, & Supergoop Smooth andPoreless 100% Mineral Matte Screen. *Body sunscreens we like: Neutrogena, La Nickolas-Posay, Vanicream sunscreen SPF 35 Remember the best sunscreen is whichever one you will wear every day! IC WORKER FITTER documented in this encounter Progress Notes * Fabiola Wagner MD - 07/12/2022 9:46 AM CST Chief Complaint Patient presents with ??? Actinic Keratosis Annual fbse HPI: Randy Vcaa 62 year old male presents for skin exam and lesion evaluation. LV: 06/29/21 for FBSE, treated AKs with LN2 Concerns: 1. Patient has several spots on trunk/extremities present for many years, would like to be checked all over to ensure none of them are cancerous, none are changing, all are asymptomatic Personal history of skin cancer: AKs Allergies and medications were reviewed and verified. Past medical history, social history and family history were reviewed. ROS: As per HPI above. Denies fevers, chills, night sweats. PE: No acute distress. Mood clear/affect appropriate. Alert and oriented. Sclera anicteric. Mucous membranes moist. Full body skin exam was conducted to include the scalp, face, lips/teeth, lids/conjunctiva, ears, neck, chest, abdomen, back, groin/buttock, right and left hands and forearms, right and left leg and feet and was normal with the following exceptions: -Multiple 2-6 mm alvarez to brown macules and papules on face, trunk, and extremities, but none with markedly different appearance from the others unless otherwise noted -Scattered, well-defined, alvarez to light brown macules on sun exposed skin including face, shoulders,and arms, but none with markedly different appearance from others unless otherwise noted -Multiple alvarez to brown stuck-on, waxy appearing papules on trunk and extremities - Thickened yellow nails with subungual debris and pink patches with diffuse overlying flake-like scale between several toes A/P: Randy was seen today for actinic keratosis. Diagnoses and all orders for this visit: Multiple benign melanocytic nevi of upper and lower extremities and trunk - Benign, reassurance - Counseled on importance of daily sun protection (Broad spectrum, SPF >30), monthly self skin exams - Reviewed ABCDEs of melanoma Solar lentiginosis - Explained benign nature, reassurance provided. - ABCDEs of melanoma was explained to the pt, advised pt on consistent sunscreen use (SPF > 30, UVA + UVB). Monthly self-exam, and avoid direct sunlight/tanning. Seborrheic keratosis - Benign, reassurance Onychomycosis Tinea pedis of both feet Not well controlled - Discussed diagnosis, typical course, and treatment options - Start ketoconazole 2% cream BID x 2 weeks, then weekly for maintenance - Advised to keep feet dry and clean - ketoconazole (Nizoral) 2 % cream; Apply to between toes and underneath feet twice daily for 2 weeks, then once weekly for maintenance. 90 days supply. RTC 1 year Patient seen and examined with Dr. Go Coding Rationale New or est? Established Patient Highest problem complexity: 1 or more chronic illnesses with exacerbation, progression, or side effects of treatment Highest level of risk: Moderate Suggested code: 06207 Fabiola Wagner MD,[facility] D[facility] Resident, PGY-4 IC WORKER FITTER Associated attestation - Janet Go MD - 07/14/2022 3:25 PM FABRIC WORKER FITTER I have seen and examined the patient with the resident and I agree with the findings and plan of care as documented by the resident. Date of Service: 07/12/2022 Janet Go MD documented in this encounter Plan of Treatment Upcoming Encounters Date Type Department Care Team (Late st Contact Info) Description 07/23/2024 9:10 AM FABRIC WORKER FITTER Office Visit [facility] - Dermatology [address] [place] [address], [facility] [place] [address] Janet Go MD [address] [place] [address] DE[place] [address] documented as of this encounter Visit Diagnoses Diagnosis Multiple benign melanocytic nevi of upper and lower extremities and trunk- Primary Solar lentiginosis Other dyschromia Seborrheic keratosis Onychomycosis Dermatophytosis of nail Tinea pedis of both feet documented in this encounter Care Teams Welfare Analyst Relationship Specialty Start Date End Date Conner Newman MD [address] [place] [phone] PCP - General 03/19/08 documented as of this encounter
--- OUTSIDE RECORDS SUMMARY | 2024-05-08 21:34 | XMS_ITS | Patient Health Summary ---
Author Organization [facility] Address [address] [place] [address] Care Team Providers Care Catering Driver Name Role Phone Conner Newman MD Primary Care Provider [phone] Note from [facility],non-owned Affiliates and Associated Physician Practices is amultiple site organization consisting of ambulatory clinics and hospital sitesin [place], [place], [place] and [place]. This disclosure is being madepursuant to the Care Everywhere program and may not contain all information available regarding this patient. Last updated 18.[facility] Allergies No known active allergies Medications * Be aware that medications may not be up to date on this document. Alwaysverify current medications with the patient. * levothyroxine (SYNTHROID) 112 MCG tablet Take 1 (one) tablet by mouth daily before breakfast * fluticasone-vilanterol (Breo Ellipta) 100-25 MCG/ACT inhaler(Started 10/21/2018) * montelukast (SINGULAIR) 10 MG tablet(Started 06/09/2021) Take 1 (one) tablet by mouth once daily * rosuvastatin (CRESTOR) 10 MG tablet(Started 06/09/2021) Take 1 (one) tablet by mouth every other day as needed * cetirizine (ZYRTEC ALLERGY) 10 MG gel capsule Take 1 (one) capsule by mouth once daily * niacin CR 500 MG capsule Take 1 (one) capsule by mouth once daily * ketoconazole (Nizoral) 2 % cream(Started 07/12/2022) Apply to between toes and underneath feet twice daily for 2 weeks, then once weekly for maintenance. 90 days supply. 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 (FLUZONE; FLULAVAL; FLUARIX; AFLURIA QUADRIVALENT; 6MO+), 0.5 ML (IIV4)(Given 03/25/2022, 04/13/2021, 03/10/2020) * TDAP, HISTORIC VACCINE(Given 09/05/2013) * iNFLUENZA VACCINE, RECOM-WEBB, QUADR. (FLUBLOCK QUADRIVALENT; 18Y+) (RIV4)(Given 03/29/2019) Social History Tobacco Use Types Packs/Day Years [...] Orientation Straight 03/15/2021 9: 43 AM CDT Procedures * NE DESTRUCT BENIGN LESION, 1-14(Performed 07/25/2023) Performed for Inflamed seborrheic keratosis * NE DESTROY PREMALIG LESION, 1ST LESION(Performed 07/25/2023) Performed for Actinic keratosis * NE DESTROY PREMALIG LESION, 1ST LESION(Performed 06/29/2021) Performed for Actinic keratosis * NE DESTROY PREMALIG LESION, 2-14(Performed 06/29/2021) Performed for Actinic keratosis * NE DESTRUCT BENIGN LESION, 1-14(Performed 06/29/2021) Performed for Inflamed seborrheic keratosis * NE DESTROY PREMALIG LESION, 1ST LESION(Performed 11/16/2018) Performed for Actinic keratoses * NE DESTROY PREMALIG LESION, 2-14(Performed 11/16/2018) Performed for Actinic keratoses Results * NE DESTRUCT BENIGN LESION, 1-14 (07/25/2023 10:16 AM INSPECTOR CIRCUITRY NEGATIVE) Janet Neff MD - 07/25/2023 10:16 AM INSPECTOR CIRCUITRY NEGATIVE Tucker Jaquez MD ? 07/25/2023 10:16 AM Diagnosis and treatment options discussed. Cryotherapy (Liquid Nitrogen) to 1 lesion for 5 seconds each. Number of cycles: 1. Wound care reviewed. Janet Go MD PROCEDURE/MINOR SURG ICAL ORDERABLES * NE DESTROY PREMALIG LESION, 1ST LESION (07/25/2023 10:16 AM INSPECTOR CIRCUITRY NEGATIVE) Narrative Janet Go MD - 07/25/2023 10:16 AM INSPECTOR CIRCUITRY NEGATIVE Tucker Jaquez MD ? 07/25/2023 10:16 AM Diagnosis and treatment options discussed. Cryotherapy (Liquid Nitrogen) to 1 lesion for 4-6 seconds. Number of cycles: 1. Wound care reviewed. Janet Go MD PROCEDURE/MINOR SURG ICAL ORDERABLES * NE DESTROY PREMALIG LESION, 2-14, NE DESTROY PREMALIG LESION, 1ST LESION (06/29/2021 9:27 AM INSPECTOR CIRCUITRY NEGATIVE) Narrative Janet Go MD - 06/29/2021 9:27 AM INSPECTOR CIRCUITRY NEGATIVE Tucker Jaquez MD ? 06/29/2021 ??9:28 AM Diagnosis and treatment options discussed. Cryotherapy (Liquid Nitrogen) to 5 lesions (L brow, R brow, vertex scalp) for 4-6 seconds each. Number of cycles: 1. Wound care reviewed. Janet Go MD PROCEDURE/MINOR SURG ICAL ORDERABLES * NE DESTRUCT BENIGN LESION, 1-14 (06/29/2021 9:27 AM INSPECTOR CIRCUITRY NEGATIVE) Janet Neff MD - 06/29/2021 9:27 AM INSPECTOR CIRCUITRY NEGATIVE Tucker Jaquez MD ? 06/29/2021 ??9:27 AM Diagnosis and treatment options discussed. Cryotherapy (Liquid Nitrogen) to 2 lesions on the left medial wrist and left dorsal hand for 10 seconds each. Number of cycles: 1. Wound care reviewed. Janet Go MD PROCEDURE/MINOR SURG ICAL ORDERABLES * NE DESTROY PREMALIG LESION, 2-14, NE DESTROY PREMALIG LESION, 1ST LESION (11/16/2018 12:12 PM CDT) Narrative Janet Go MD - 11/16/2018 12:12 PM CDT Ladan Mueller MD ? 11/15/2018 11:24 PM Diagnosis and treatment options discussed for AK. Verbal consent obtained. ?? Cryotherapy (Liquid Nitrogen) performed to 2 lesions (frontal scalp) for 10 seconds each. Number of cycles: 1. Wound care reviewed and post-cryotherapy handout given. Ladan Mueller MD [facility], Department of Dermatology Janet Go MD PROCEDURE/MINOR SURG ICAL ORDERABLES Care Teams Catering Driver Relationship Specialty Start Date End Date Conner Newman MD [address] [place] [address] PCP - General 03/19/08
== END 2024-05-05 07:44 | disposition home or self-care (01) ==
PROVIDERS: PCP Internal Medicine; Visit Provider Internal Medicine
DX: E03.9 Hypothyroidism, unspecified (principal); Z79.899 Other long term (current) drug therapy; R73.09 Other abnormal glucose; R97.20 Elevated prostate specific antigen [PSA]; E78.5 Hyperlipidemia, unspecified
CPT/HCPCS: 36415; 80053; 80061; 83036; 84153; 84439; 84443; 85025; G0103

== ENCOUNTER 2024-09-12 09:28 | Outpatient (CLI) | payer OTHER, SELFPAY ==
--- NOTE | ~2024-09-12 | CT_ITS ---
Clinical Indication: Dyspnea CT Scan of the Chest with Contrast: Technique: Contiguous sections were acquired throughout the chest after intravenous administration of 100 cc of Omnipaque 350. Dose reduction technique was used on this scan by utilizing automated expos ure control and iterative reconstruction technique. The dose-length product (DLP) was 373.20 mGy-cm. Findings: There is no evidence of any significant mediastinal, hilar or axillary lymphadenopathy. There is no f illing defect in the pulmonary arterial tree to suggest pulmonary embolus. There is no evidence of ao rtic dissection or aneurysm. There is no evidence of pleural or pericardial effusion. The lungs are clear. No pulmonary nodules or infiltrates are noted. Images through the upper abdomen reveal no abnormalities. Impression: No evidence of pulmonary embolus, aortic dissection, or aortic aneurysm. Clear lungs. Reviewed, dictated and finalized at [facility]. Impression: No evidence of pulmonary embolus, aortic dissection, or aortic aneurysm. Clear lungs.
[2024-09-12 09:45] LABS: Basophils Absolute Auto 0.1 K/mm3 (0.0-0.1); Basophils Percent Auto 1.1 % (0.2-1.2); Eosinophils Absolute Auto 1.1 K/mm3 (0-0.3); Eosinophils Percent Auto 14.3 % (0-4.4); Hematocrit 47.7 % (42.0-52.0); Hemoglobin 16.1 g/dL (14.0-18.0); Immature Granulocyte Absolute 0.01 K/mm3 (0.00-0.031); Immature Granulocyte Percent A 0.1 % (0-0.5); Lymphocytes Absolute Auto 1.63 K/mm3 (0.9-3.2); Lymphocytes Percent Auto 21.6 % (18.3-44.2); Mean Corpuscular HGB Conc 33.8 g/dl (32-36); Mean Corpuscular Hemoglobin 31.1 pg (26-34); Mean Corpuscular Volume 92.3 fl (80-100); Mean Platelet Volume 9.1 fl (7.4-10.4); Monocytes Absolute Auto 0.6 K/mm3 (0.1-0.6); Monocytes Percent Auto 7.4 % (2.6-8.5); Neutrophils Absolute Auto 4.2 K/mm3 (1.3-6.7); Neutrophils Percent Auto 55.5 % (45.5-73.1); Platelet Count Result 217 k/mm3 (150-375); Red Blood Count 5.17 M/mm3 (4.6-6.20); Red Cell Distribution Width 12.6 % (11.5-14.5); White Blood Count 7.5 K/mm3 (4.5-10.0)
[2024-09-12 09:59] LABS: Alanine Aminotransferase 36 U/L (6-50); Albumin Level 4.6 g/dL (3.5-5.1); Alkaline Phosphatase 69 U/L (38-126); Anion Gap 11 mmol/L (4-12); Aspartate Amino Transferase 31 U/L (17-59); Bilirubin,Total 0.7 mg/dL (0.2-1.3); Blood Urea Nitrogen 17 mg/dL (9-20); Calcium 9.5 mg/dL (8.4-10.2); Carbon Dioxide 27 mmol/L (22-30); Chloride 104 mmol/L (98-107); Estimated Glomerular Filt Rate > 60; Glucose 85 mg/dL (65-110); Potassium 4.3 mmol/L (3.4-5.0); Sodium 142 mmol/L (137-145)
[2024-09-12 10:03] LABS: Estimated Glomerular Filt Rate > 60
--- OUTSIDE RECORDS SUMMARY | 2024-09-12 10:28 | XMS_ITS | Clinical Summary ---
Author Organization [facility] Address [address] [address] Care Team Providers Care Quality Compliance Manager Name Role Phone Conner Newman MD Primary Care Provider [phone] Source Comments [facility],non-owned Affiliates and Associated Physician Practices is amultiple site organization consisting of ambulatory clinics and hospital sitesin [place], [place], [place] and [place]. This disclosure is being madepursuant to the Care Everywhere program and may not contain all information available regarding this patient. Last updated 18.[facility] Allergies No known active allergies Medications * Be aware that medications may not be up to date on this document. Alwaysverify current medications with the patient. levothyroxine (SYNTHROID) 112 MCG tablet Take 1 (one) tablet by mouth daily before breakfast Active fluticasone-nakul anterol (Breo Ellipta) 100-25 MCG/ACT inhaler 9 Active montelukast (SINGULAIR) 10 MG tablet Take 1 (one) tablet by mouth once daily 2 Active rosuvastatin (CRESTOR) 10 MG tablet Take 1 (one) tablet by mouth every other day as needed 2 Active cetirizine (ZYRTEC ALLERGY) 10 MG gel capsule Take 1 (one) capsule by mouth once daily Active niacin CR 500 MG capsule Take 1 (one) capsule by mouth once daily Active ascorbic acid (Vitamin C) 500 MG tablet Take 1 (one) tablet by mouth once daily Active calcium-vitamin D (Caltrate Plus D) 600-200 MG-UNIT tablet Take 1 (one) tablet by mouth once daily Active finasteride (Proscar) 5 MG tablet Take 1 (one) tablet by mouth once daily 5 Active ketoconazole (Nizoral) 2 % creamIndication s:Onychomycosis Apply to between toes and underneath feet twice daily for 2 weeks, then once weekly for maintenance. 90 days supply. 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 Multiple benign melanocytic nevi of upper and lower extremities and trunk 11/15/2018 Seborrheic keratosis 11/15/2018 Onychomycosis 11/15/2018 Other viral warts 01/28/2010 Overview (06/29/2021): IMO load Overview: IMO load Encounters Date Type Department Care Team Description 07/23/2024 9:10 AM INDUSTRIAL BOILERMAKER Office Visit [facility] - Dermatology [address] [place] [phone] Janet Go MD Actinic keratosis (Primary Dx); Multiple benign melanocytic nevi of upper and lower extremities and trunk; Lentigines; Onychomycosis; Tinea pedis of both feet; Seborrheic keratoses; Prurigo 07/23/2024 Travel from Last 3 Months Immunizations Immunization Administration Dates Next Due INFLUENZA VACCINE 03/29/2021 INFLUENZA VACCINE, QUADR. (F LUZONE; FLULAVAL; [...] Assigned at Male 03/15/2021 9:43 AM CDT Legal Sex Male 5:34 PM INDUSTRIAL BOILERMAKER Gender Identity Male 03/15/2021 9:43 AM CDT Sexual Orientation Straight 03/15/2021 9: 43 AM CDT Plan of Treatment Upcoming Encounters Date Type Department Care Team (Late st Contact Info) Description 07/22/2025 9:50 AM INDUSTRIAL BOILERMAKER Office Visit [facility] - Dermatology [address] [place] [address], [place] [address] Janet Go MD [address] [place] [address] [address] [place] [phone] Health Maintenance Due Date Last Done Comments COLOGUARD (AGES 45-75) - COLON CA SCREENING 1960 COLON MONITORING 1960 COLONOSCOPY - COLON CA SCREENING 1960 CT COLONOGRAPHY - COLON CA SCREENING 1960 Colorectal Cancer Screening 1960 FIT - COLON CA SCREENING 1960 FLEX SIG - COLON CA SCREENING 1960 HIV SCREENING 02/03/1975 HEPATITIS C SCREENING 01/30/1978 PNEUMOCOCCAL VACCINE 50+ (1 of 1 - PCV) 02/03/2010 ZOSTER VACCINE (1 of 2) 02/03/2010 DTAP/TDAP/TD VACCINES (2 - Td or Tdap) 09/06/2023 09/05/2013 COVID-19 VACCINE ( season) 2024 03/25/2022, 04/13/2021, 08/08/2020, Additional history exists DEPRESSION SCREENING 05/23/2024 INFLUENZA VACCINE (Season Ended) 2025 04/01/2023, 03/25/2022, 04/13/2021, Additional history exists Respiratory Syncytial [...] patient's age to complete this topic MENINGOCOCCAL (Group B) VACCINE SHARED DECISION-MAKING Aged Out No longer eligible based on patient's age to complete this topic MENINGOCOCCAL GROUPS A/C/Y/W VACCINE Aged Out No longer eligible based on patient's age to complete this topic Procedures Procedure Name Priority Date/Time Associated Diagnosis Comments MI INTRALESIONAL INJECTION(S) 7 OR LESS Routine 07/23/2024 11:47 AM INDUSTRIAL BOILERMAKER Prurigo MI DESTROY PREMALIG LESION, 1ST LESION Routine 07/23/2024 11:46 AM INDUSTRIAL BOILERMAKER Actinic keratosis from Last 3 Months Results * MI INTRALESIONAL INJECTION(S) 7 OR LESS (07/23/2024 11:47 AM INDUSTRIAL BOILERMAKER) Narrative Janet Go MD - 07/23/2024 11:47 AM INDUSTRIAL BOILERMAKER Van Trujillo MD 07/23/2024 11:47 AM The side effects of intralesional triamcinolone were discussed with patient, including petechiae and purpura, local lipoatrophy, striae and pigment change. 0.1 mL of Triamcinolone 40 mg/mL was injected in to 1 prurigo nodule with a 1 cc syringe and a 30 gauge needle. Van Trujillo MD 07/23/2024 PGY-3 Dermatology Resident Janet Go MD PROCEDURE/MINOR SURGICAL ORDE KALYAN Final Result * MI DESTROY PREMALIG LESION, 1ST LESION (07/23/2024 11:46 AM INDUSTRIAL BOILERMAKER) Janet Neff MD - 07/23/2024 11:46 AM INDUSTRIAL BOILERMAKER Van Trujillo MD 07/23/2024 11:47 AM Diagnosis and treatment options discussed for AKs. Verbal consent obtained. Cryotherapy (Liquid Nitrogen) performed to 1 lesion for 6-7 seconds . Number of cycles: 1. Wound care reviewed and post-cryotherapy handout given. Van Trujillo MD Dermatology Resident, PGY-3 07/23/2024 11:47 AM Result [facility] Peggy Go MD PROCEDURE/MINOR SURGICAL DILMA BIGGS Final Result from Last 3 Months Insurance [facility] Care Teams Quality Compliance Manager Relationship Specialty Start Date End Date Conner Newman MD [address] [place] [phone] PCP - General 03/19/08
== END 2024-09-12 09:29 | disposition home or self-care (01) ==
LOC: ANHIMG 09:28
PROVIDERS: PCP Internal Medicine; Visit Provider Internal Medicine
DX: R06.09 Other forms of dyspnea (principal); R06.02 Shortness of breath
CPT/HCPCS: 36415; 71275; 80053; 85025; Q9967

== ENCOUNTER 2024-09-14 06:43 | Outpatient (CLI) | payer OTHER, SELFPAY ==
--- OUTSIDE RECORDS SUMMARY | 2024-09-14 06:46 | XMS_ITS | Clinical Summary ---
Author Organization [facility] Address [address] [place] [address] Care Team Providers Care Fare Collector Name Role Phone Conner Newman MD Primary Care Provider [phone] Source Comments [facility],non-owned Affiliates and Associated Physician Practices is amultiple site organization consisting of ambulatory clinics and hospital sitesin [place], [place], [place] and [place]. This disclosure is being madepursuant to the Care Everywhere program and may not contain all information available regarding this patient. Last updated 18.[facility] Allergies No known active allergies Medications * [...] Department Care Team Description 07/23/2024 9:10 AM TITLE ONE KINDERGARTEN TEACHER Office Visit [facility] - Dermatology [address] [place] [phone] Janet Go MD Actinic keratosis (Primary [...] AM CDT Legal Sex Male 5:34 PM TITLE ONE KINDERGARTEN TEACHER Gender Identity Male 03/15/2021 9:43 AM CDT Sexual Orientation Straight 03/15/2021 9: 43 AM CDT Plan of Treatment Upcoming Encounters Date Type Department Care Team (Late st Contact Info) Description 07/22/2025 9:50 AM TITLE ONE KINDERGARTEN TEACHER Office Visit [facility] - Dermatology [address] [place] [address], [place] [address] Janet Go MD [address] [place] [address] [address] [place] [phone] Health Maintenance Due Date Last Done Comments [...] Procedure Name Priority Date/Time Associated Diagnosis Comments CA INTRALESIONAL INJECTION(S) 7 OR LESS Routine 07/23/2024 11:47 AM TITLE ONE KINDERGARTEN TEACHER Prurigo CA DESTROY PREMALIG LESION, 1ST LESION Routine 07/23/2024 11:46 AM TITLE ONE KINDERGARTEN TEACHER Actinic keratosis from Last 3 Months Results * CA INTRALESIONAL INJECTION(S) 7 OR LESS (07/23/2024 11:47 AM TITLE ONE KINDERGARTEN TEACHER) Narrative Janet Go MD - 07/23/2024 11:47 AM TITLE ONE KINDERGARTEN TEACHER Van Trujillo MD 07/23/2024 11:47 AM The [...] PROCEDURE/MINOR SURGICAL ORDE KALYAN Final Result * CA DESTROY PREMALIG LESION, 1ST LESION (07/23/2024 11:46 AM TITLE ONE KINDERGARTEN TEACHER) Janet Neff MD - 07/23/2024 11:46 AM TITLE ONE KINDERGARTEN TEACHER Van Trujillo MD 07/23/2024 11:47 AM Diagnosis and treatment options discussed for AKs. Verbal consent obtained. Cryotherapy (Liquid Nitrogen) performed to 1 lesion for 6-7 seconds . Number of cycles: 1. Wound care reviewed and post-cryotherapy handout given. Van Trujillo MD Dermatology Resident, PGY-3 07/23/2024 11:[address] [facility] Peggy Go MD PROCEDURE/MINOR SURGICAL DILMA BIGGS Final Result from Last 3 Months Insurance [facility] Care Teams Fare Collector Relationship Specialty Start Date End Date Conner Newman MD [address] [place] [phone] PCP - General 03/19/08
--- NOTE | 2024-09-14 06:50 | ECHO_ITS ---
Patient Info Name: Randy Thakur Urban Age: 64 years : 1960 Gender: Male Ht: 72 in Wt: 193 lbs BSA: 2.12 m2 HR: 70 bpm BP: 147 / 84 mmHg Heart Rhythm: Sinus Rhythm Technical Quality: Good Exam Date: 09/14/2024 7:07 AM Exam Location: Echo Lab Patient Status: Outpatient Admit Date: 09/14/2024 Staff Ordering Physician: Conner Newman MD Local City Driver: Idalia Lee RDCS Attending Provider: Conner Newman MD Referring Physician: Trent FAROOQ; Exam Type: CA echo doppler color flow Study Info Indications R06.09 - Other forms of dyspnea Complete two-dimensional, color flow and Doppler transthoracic echocardiogram is performed. Summary 1. Complete two-dimensional, color flow and Doppler transthoracic echocardiogram is performed. 2. Left ventricular chamber dimension is normal. 3. Left ventricular systolic function is normal, estimated at 65-70%. 4. There is mild concentric increased left ventricular wall thickness. 5. The left ventricular diastolic function is normal. 6. E/e' 7 is not elevated. 7. Global longitudinal strain is normal at -20.5%. 8. Left atrial chamber dimension is mildly enlarged. 9. There is mild mitral valve regurgitation. 10. There is mild tricuspid valve regurgitation. 11. No pulmonary hypertension, estimated pulmonary arterial systolic pressure is 20 mmHg. Left Ventricle E/e' 7 is not elevated. Global longitudinal strain is normal at -20.5%. Left ventricular chamber dimension is normal. Left ventricular systolic function is normal, estimated at 65-70%. There is mild concentric increased left ventricular wall thickness. The left ventricular diastolic function is normal. Right Ventricle Right ventricular systolic function is normal and with normal TAPSE 2.7 cm. Right ventricular chamber dimension is normal. Left Atria Left atrial chamber dimension is mildly enlarged. Right Atria Right atrial chamber dimension is normal. Aortic Valve The aortic valve is trileaflet. There is no aortic valve stenosis. There is no aortic valve regurgitation. Pulmonic Valve There is no pulmonic regurgitation. Mitral Valve There is no mitral valve stenosis. There is mild mitral valve regurgitation. Tricuspid Valve There is mild tricuspid valve regurgitation. No pulmonary hypertension, estimated pulmonary arterial systolic pressure is 20 mmHg. Pericardium/Pleural There is no pericardial effusion. Inferior Vena Cava Normal inferior vena cava with >50% collapse upon inspiration consistent with normal right atrial pressure, 5 mmHg. Aorta The aortic root size at the sinus of Valsalva is borderline dilated. Left Ventricular Outflow Tract Name Value Normal LVOT 2D LVOT Diameter 2.1 cm LVOT Doppler LVOT Peak Gradient 7 mmHg LVOT Mean Gradient 4 mmHg LVOT VTI 25 cm LVOT VTI/AV VTI Ratio 0.9 LVOT Stroke Volume 84 ml LVOT CO 5.2 l/min LVOT CI 2.4 l/min/m2 Pulmonic Valve Name Value Normal RVOT Doppler RVOT Peak Gradient 3 mmHg PV Doppler PV Peak Gradient 5 mmHg Mitral Valve Name Value Normal MV Doppler MV Decel Pas[place] 229 cm/s2 MV PHT 89 ms MV Area (PHT) 2.5 cm2 4.0-5.0 MV Diastolic Function MV E Peak Velocity 70 cm/s MV A Peak Velocity 60 cm/s MV E/A 1.2 MV Decel Time 307 ms MV Annular TDI MV E/e' (Septal) 9.0 <=8.0 MV E/e' (Lateral) 5.8 <=8.0 MV E/e' (Average) 7.4 Tricuspid Valve Name Value Normal TV Regurgitation Doppler TR Peak Velocity 194 cm/s TR Peak Gradient 15 mmHg Estimated PAP/RSVP RA Pressure 5 mmHg <=5 PA Systolic Pressure 20 mmHg <36 RV Systolic Pressure 20 mmHg <36 Aorta Name Value Normal Ascending Aorta Ao Root Diameter (MM) 4.0 cm Ao Root Diam Index (MM) 1.9 cm/m2 Aortic Valve Name Value Normal AV Doppler AV Peak Velocity 134 cm/s AV Peak Gradient 7 mmHg AV Mean Gradient 4 mmHg AV VTI 26 cm AV Area (Cont Eq VTI) 3.2 cm2 >=3.0 AV Area (Cont Eq Foreign) 3.3 cm2 AV Regurgitation 2D LVOT Area 3.4 cm2 Ventricles Name Value Normal LV Dimensions 2D/MM IVS Diastolic Thickness (2D) 1.2 cm 0.6-1.0 LVID Diastole (2D) 4.6 cm 4.2-5.8 LVIW Diastolic Thickness (2D) 0.8 cm 0.6-1.0 LVID Systole (2D) 2.8 cm 2.5-4.0 LVOT Diameter 2.1 cm LV Mass (2D Cubed) 162.88 g 88.00-224.00 LV Mass Index (2D Cubed) 77 g/m2 49-115 Relative Wall Thickness (2D) 0.33 LV Fractional Shortening/Ejection Fraction 2D/MM LV Fractional Shortening (2D) 39 % 25-43 LV EF (2D Teicholz) 70 % 52-72 LV Diastolic Volume (4C MOD) 109 ml LV EF (4C MOD) 68 % LV Diastolic Volume (2C MOD) 105 ml LV EF (2C MOD) 63 % LV Diastolic Volume (BP MOD) 107 ml 62-150 LV Diastolic Volume Index (BP MOD) 51 ml/m2 34-74 LV Systolic Volume (BP MOD) 37 ml 21-61 LV Systolic Volume Index (BP MOD) 18 ml/m2 11-31 LV EF (BP MOD) 65 % 52-72 LV Diastolic Length (4C) 8.6 cm LV Systolic Length (4C) 6.7 cm LV Stroke Volume (4C MOD) 74 ml Atria Name Value Normal LA Dimensions LA Dimension (MM) 3.9 cm 3.0-4.1 LA Volume (4C A-L) 55 ml LA Volume (BP A-L) 63 ml RA Dimensions RA Area (4C) 14.9 cm2 <=18.0 EchoPAC Name Value Normal RAQUEL AA peak sys SL (AWMA) 17.6 % AAS peak sys SL (AWMA) 29.6 % AI peak sys SL (AWMA) 25.8 % AL peak sys SL (AWMA) 24.0 % AP peak sys SL (AWMA) 25.3 % peak sys SL (AWMA) 32.9 % AVC (AWMA) 369 ms BA peak sys SL (AWMA) 15.3 % BAS peak sys SL (AWMA) 15.9 % BI peak sys SL (AWMA) 16.5 % BL peak sys SL (AWMA) 18.5 % BP peak sys SL (AWMA) 18.1 % BS peak sys SL (AWMA) 12.1 % G peak SL(A2C) (AWMA) 18.5 % G peak SL(A4C) (AWMA) 21.5 % G peak SL(APLAX) (AWMA) 21.4 % G peak SL(Avg) (AWMA) 20.5 % MA peak sys SL (AWMA) 16.4 % MAS peak sys SL (AWMA) 22.5 % MO peak sys SL (AWMA) 22.3 % ML peak sys SL (AWMA) 17.0 % MP peak sys SL (AWMA) 17.9 % MS peak sys SL (AWMA) 21.8 % Report Signatures
== END 2024-09-14 06:44 | disposition home or self-care (01) ==
LOC: ANHCARD 06:45
PROVIDERS: PCP Internal Medicine; Visit Provider Internal Medicine
DX: R06.09 Other forms of dyspnea (principal); R06.02 Shortness of breath; I36.1 Nonrheumatic tricuspid (valve) insufficiency; I34.0 Nonrheumatic mitral (valve) insufficiency
CPT/HCPCS: 93306

== ENCOUNTER 2024-11-10 06:50 | Outpatient (CLI) | payer OTHER, SELFPAY ==
[2024-11-10 08:51] LABS: Prostate Specific Antigen 3.7 ng/mL (< OR = 4.0)
== END 2024-11-10 06:51 | disposition home or self-care (01) ==
LOC: ANHLAB 06:52
PROVIDERS: PCP Internal Medicine; Visit Provider Urology
DX: R97.20 Elevated prostate specific antigen [PSA] (principal)
CPT/HCPCS: 36415; 84153; G0103

== ENCOUNTER 2024-11-15 06:38 | Outpatient (CLI) | payer OTHER, SELFPAY ==
[2024-11-15 07:33] LABS: Alanine Aminotransferase 42 U/L (6-50); Albumin Level 4.2 g/dL (3.5-5.1); Alkaline Phosphatase 68 U/L (38-126); Anion Gap 8 mmol/L (4-12); Aspartate Amino Transferase 35 U/L (17-59); Bilirubin,Total 0.9 mg/dL (0.2-1.3); Blood Urea Nitrogen 17 mg/dL (9-20); Calcium 9.8 mg/dL (8.4-10.2); Carbon Dioxide 26 mmol/L (22-30); Chloride 105 mmol/L (98-107); Cholesterol 109 mg/dL (0-200); Estimated Glomerular Filt Rate > 60; Glucose 93 mg/dL (65-110); HDL Direct 40 mg/dL; Potassium 4.2 mmol/L (3.4-5.0); Sodium 139 mmol/L (137-145); Total Protein 7.1 g/dL (6.3-8.2); Triglycerides 73 mg/dL (<150)
[2024-11-15 07:45] LABS: LDL Cholesterol Direct 39 mg/dL
[2024-11-15 08:04] LABS: Thyroid Stimulating Hormone 0.438 uIU/mL (0.465-4.680)
[2024-11-15 09:58] LABS: Free T4 Free Thyroxine 1.38 ng/dL (0.78-2.19); Vitamin D 25 Hydroxy 49.7 ng/mL
== END 2024-11-15 06:39 | disposition home or self-care (01) ==
LOC: ANHLAB 06:39
PROVIDERS: PCP Internal Medicine; Visit Provider Internal Medicine
DX: E78.2 Mixed hyperlipidemia (principal); Z79.899 Other long term (current) drug therapy; E55.9 Vitamin D deficiency, unspecified; E03.9 Hypothyroidism, unspecified
CPT/HCPCS: 36415; 80053; 80061; 82306; 84439; 84443

== ENCOUNTER 2025-02-18 00:19 | Day surgery (SDC) | payer OTHER, SELFPAY ==
[2025-02-04 10:42] VITALS: BMI 27.1
--- OUTSIDE RECORDS SUMMARY | 2025-02-18 00:21 | XMS_ITS | Clinical Summary ---
Author Organization [facility] [employer] Address [address] [place] [address] Care Team Providers Care Sexual Assault Response Coordinator Name Role Phone Conner Newman MD Primary Care Provider [phone] Source Comments [facility] [employer],non-owned Affiliates and Associated Physician Practices is amultiple site organization consisting of ambulatory clinics and hospital sitesin [place], [place], [place] and [place]. This disclosure is being madepursuant to the Care Everywhere program and may not contain all information available regarding this patient. 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.] on patient's age to complete this topic Insurance [facility] Care Teams Sexual Assault Response Coordinator Relationship Specialty Start Date End Date Conner Newman MD [address] [place] [phone] PCP - General 03/19/08
[2025-02-18 09:44] VITALS: BP 133/76; PULSE 73; RESP 18; TEMP 36.2; O2SAT 95; BMI 26.9
[2025-02-18] MEDS: LACTATED RINGERS 1,000 ML 150 ML IV CONT (09:52)
--- NOTE | 2025-02-18 10:36 | WPDANESEPPF ---
Anes - Initial Pre Proc Eval Procedure: Operation Date: 02/18/25 11:00 Proposed Procedures p Screening Colonoscopy - Jarrod Britton MD Date/Time: 02/18/25 10:36 Surgeon: Jarrod Britton MD Pre Op Diagnosis: Personal history of colon polyps, unspecified Patient Data Age: 65 Gender: M Height: 1.83 m Weight: 90.2 kg Last Vital Signs Temp 97.2 F L 02/18/25 09:44 Pulse 73 02/18/25 09:44 Resp 18 02/18/25 09:44 BP 133/76 02/18/25 09:44 Pulse Ox 95 02/18/25 09:44 O2 Del Method Room Air 02/18/25 09:44 Allergies Allergy/AdvReac Type Severity Reaction Status Date / Time No Known Allergies Allergy Verified 02/18/25 09:43 Home Medications ?Medication ?Instructions ?Recorded ?Confirmed ?Type Bacillus coagulans 250 million 2 tablet PO DAILY 04/26/19 02/18/25 History cell-calcium 250 mg chewable tablet ascorbic acid (vitamin C) 500 mg 500 mg PO DAILY 04/26/19 02/18/25 History capsule aspirin 81 mg tablet,delayed 81 mg PO DAILY 04/26/19 02/18/25 History release (Adult Aspirin Regimen) cetirizine 10 mg capsule (Zyrtec) 10 mg PO DAILY 04/26/19 02/18/25 History niacin 500 mg capsule,extended 500 mg PO QAM 04/26/19 02/18/25 History release omega-3 fatty acids 500 mg capsule 500 mg PO DAILY 04/26/19 02/18/25 History calcium 250 mg (as 1 tablet PO BID 12/21/19 02/18/25 History citrate)-vitamin D3 5 mcg (200 unit) tablet fluticasone propionate 50 2 spray intranasal BID PRN nasal 08/08/20 02/04/25 Rx mcg/actuation nasal congestion #11.1 mL spray,suspension (Allergy Relief (fluticasone)) Left Ankle Sleeve #1 ea 12/09/22 11/19/24 Rx finasteride 5 mg tablet 5 mg PO DAILY 11/18/23 02/18/25 History sildenafil 100 mg tablet 100 mg PO DAILY 11/18/23 02/18/25 History albuterol sulfate 90 mcg/actuation 2 puff inhalation Q4H PRN 04/22/25 09/15/25 Rx aerosol inhaler (Ventolin HFA) shortness of breath or wheezing #8.5 grams montelukast 10 mg tablet See Rx Instructions .Route 10/02/24 02/18/25 Rx .COMPLEX #90 tabs Breo Ellipta 100 mcg-25 mcg/dose See Rx Instructions .Route 11/27/24 02/18/25 Rx powder for inhalation (fluticasone .COMPLEX #60 ea furoate-vilanterol) levothyroxine 112 mcg tablet See Rx Instructions .Route 11/27/24 02/18/25 Rx .COMPLEX #90 tabs rosuvastatin 5 mg tablet 5 mg PO EVERY OTHER DAY 02/04/25 02/18/25 History Patient hx anesthesia problems: none Family hx anesthesia problems: none Results Review: All pre-operative results and documents have been reviewed as part of the pre-operative evaluation. [facility] Past Medical History Medical History STRINGER (dyspnea on exertion) SOB (shortness of breath) BMI 26.0-26.9,adult Cervicalgia Left foot pain Pain and swelling of left lower extremity Seasonal allergies Hearing loss Encounter for preventive health examination BMI 27.0-27.9,adult Bilious vomiting Right upper quadrant abdominal pain History of bronchitis Gallbladder sludge Epigastric abdominal pain Cough Cholecystitis Calculus of gallbladder with acute on chronic cholecystitis Acute asthmatic bronchitis Abnormal findings on imaging of biliary tract Cataract Encounter for preventive health examination Mild reactive airways disease Actinic keratosis Need for influenza vaccination BMI 29.0-29.9,adult Encounter for routine adult health examination without abnormal findings Follow up Hx of colonic polyps Chronic sinusitis Loss of smell Loss of taste Encounter for routine adult health examination with abnormal findings Vitamin D deficiency GERD (gastroesophageal reflux disease) Asthma Hypothyroidism (acquired) Hyperlipidemia BMI 28.0-28.9,adult 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 Abdominal pain Thyroid disease Surgical History Surgical History Status post cholecystectomy S/P laparoscopic cholecystectomy History of cholecystectomy 11/20/18 Social History Social History Smoking status: Never smoker Smoking end date: 05/23/98 Alcohol intake: current Drinks per week: 1 Alcohol use details: per month Substance use: never Substance use type: does not use Lack of Transportation: No Lack of Food: Sometimes True Current Housing: I Have Housing Concerned About Future Housing: Decline to Answer Difficulty Paying Gas/Electric Bills: Decline to Answer Difficulty Paying for Meds: Decline to Answer Currently Unemployed: Decline to Answer Education: Don't Know Difficulty w/ Childcare or Family Care: Decline to Answer Living arrangements: with family Gender identity (if verbalized by the patient): Male Spiritual care concerns: No Anes - Eval Final PreProcedure Day of Procedure 02/18/25 10:36 Patient weight: normal Lungs: normal air movement Airway: Mallampati scale class II Neurological: alert and oriented Last oral intake: >/= 8 hours ASA classification: II Emergent: no Anesthetic plan: proceed Anesthesia type and monitoring: general GIVS and standard monitoring Results Review: All pre-operative results and documents have been reviewed as part of the pre-operative evaluation. Hyperlipidemia, hypothyroidism. 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 Informed Consent: The patient's anesthetic plan and its attendant risks and benefits were discussed with the patient/family/POA. Questions were solicited and answers provided to the satisfaction of the patient/family/POA.
--- NOTE | 2025-02-18 10:49 | PM.IMHP ---
H&P: HPI History of Present Illness Date/Time: 02/18/25 10:49 Chief Complaint: History of colon polyp Narrative: The patient has a history of colonic polyps, the last colonoscopy was 5 years ago. Review of Systems Review of Systems: All systems reviewed & are unremarkable except as noted in HPI and below PMFSH Past Medical History Medical History STRINGER (dyspnea on exertion) SOB (shortness of breath) BMI 26.0-26.9,adult Cervicalgia Left foot pain Pain and swelling of left lower extremity Seasonal allergies Hearing loss Encounter for preventive health examination BMI 27.0-27.9,adult Bilious vomiting Right upper quadrant abdominal pain History of bronchitis Gallbladder sludge Epigastric abdominal pain Cough Cholecystitis Calculus of gallbladder with acute on chronic cholecystitis Acute asthmatic bronchitis Abnormal findings on imaging of biliary tract Cataract Encounter for preventive health examination Mild reactive airways disease Actinic keratosis Need for influenza vaccination BMI 29.0-29.9,adult Encounter for routine adult health examination without abnormal findings Follow up Hx of colonic polyps Chronic sinusitis Loss of smell Loss of taste Encounter for routine adult health examination with abnormal findings Vitamin D deficiency GERD (gastroesophageal reflux disease) Asthma Hypothyroidism (acquired) Hyperlipidemia BMI 28.0-28.9,adult 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 Abdominal pain Thyroid disease Surgical History Surgical History Status post cholecystectomy S/P laparoscopic cholecystectomy History of cholecystectomy 11/20/18 Social History Social History Smoking status: Never smoker Smoking end date: 05/23/98 Alcohol intake: current Drinks per week: 1 Alcohol use details: per month Substance use: never Substance use type: does not use Lack of Transportation: No Lack of Food: Sometimes True Current Housing: I Have Housing Concerned About Future Housing: Decline to Answer Difficulty Paying Gas/Electric Bills: Decline to Answer Difficulty Paying for Meds: Decline to Answer Currently Unemployed: Decline to Answer Education: Don't Know Difficulty w/ Childcare or Family Care: Decline to Answer Living arrangements: with family Gender identity (if verbalized by the patient): Male Spiritual care concerns: No Meds Home Medications and Allergies Home Medications ?Medication ?Instructions ?Recorded ?Confirmed ?Type Bacillus coagulans 250 million 2 tablet PO DAILY 04/26/19 02/18/25 History cell-calcium 250 mg chewable tablet ascorbic acid (vitamin C) 500 mg 500 mg PO DAILY 04/26/19 02/18/25 History capsule aspirin 81 mg tablet,delayed 81 mg PO DAILY 04/26/19 02/18/25 History release (Adult Aspirin Regimen) cetirizine 10 mg capsule (Zyrtec) 10 mg PO DAILY 04/26/19 02/18/25 History niacin 500 mg capsule,extended 500 mg PO QAM 04/26/19 02/18/25 History release omega-3 fatty acids 500 mg capsule 500 mg PO DAILY 04/26/19 02/18/25 History calcium 250 mg (as 1 tablet PO BID 12/21/19 02/18/25 History citrate)-vitamin D3 5 mcg (200 unit) tablet fluticasone propionate 50 2 spray intranasal BID PRN nasal 08/08/20 02/04/25 Rx mcg/actuation nasal congestion #11.1 mL spray,suspension (Allergy Relief (fluticasone)) Left Ankle Sleeve #1 ea 12/09/22 11/19/24 Rx finasteride 5 mg tablet 5 mg PO DAILY 11/18/23 02/18/25 History sildenafil 100 mg tablet 100 mg PO DAILY 11/18/23 02/18/25 History albuterol sulfate 90 mcg/actuation 2 puff inhalation Q4H PRN 09/11/24 02/04/25 Rx aerosol inhaler (Ventolin HFA) shortness of breath or wheezing #8.5 grams montelukast 10 mg tablet See Rx Instructions .Route 10/02/24 02/18/25 Rx .COMPLEX #90 tabs Breo Ellipta 100 mcg-25 mcg/dose See Rx Instructions .Route 11/27/24 02/18/25 Rx powder for inhalation (fluticasone .COMPLEX #60 ea furoate-vilanterol) levothyroxine 112 mcg tablet See Rx Instructions .Route 11/27/24 02/18/25 Rx .COMPLEX #90 tabs rosuvastatin 5 mg tablet 5 mg PO EVERY OTHER DAY 02/04/25 02/18/25 History Allergies Allergy/AdvReac Type Severity Reaction Status Date / Time No Known Allergies Allergy Verified 02/18/25 09:43 Vital Signs Vital Signs - 24 hr 02/18/25 09:44 Temperature 97.2 F L Pulse Rate 73 Respiratory Rate 18 Blood Pressure 133/76 Pulse Oximetry 95 Oxygen Delivery Room Air Exam Const: General: cooperative and healthy appearing Resp: Effort & Inspection: normal respiratory effort and able to speak in complete sentences Auscultation: clear to auscultation bilaterally Cardio: Rate: regular rate Rhythm: regular rhythm GI: Inspection: normal to inspection GI Palp: No No hepatosplenomegaly present Auscultation: normal bowel sounds Rectal Exam: deferred Skin: General skin exam: normal color Psych: Appearance: grossly normal Mental Status: mental status grossly normal Assessment and Plan Assessment and plan (1) Hx of colonic polyps: Code(s): Z86.010 - Personal history of colon polyps Status: Acute Assessment and Plan: The patient is deemed a good candidate for the procedure. Consent signed. Will proceed.
[2025-02-18 11:15] VITALS: BP 95/61; PULSE 63; RESP 18; O2SAT 97
[2025-02-18 11:25] VITALS: BP 98/66; PULSE 71; RESP 18; O2SAT 98
[2025-02-18 11:35] VITALS: BP 112/70; PULSE 69; RESP 23; O2SAT 98
== END 2025-02-18 11:48 | disposition home or self-care (01) ==
PROVIDERS: PCP Internal Medicine; Referring Provider Internal Medicine; Visit Provider Internal Medicine Gastroenterology
PROC: 0DJD8ZZ Inspection of Lower Intestinal Tract, Via Natural or Artificial Opening Endoscopic (ICD-10-PCS; CPT 45378; principal; 2025-02-18 11:00)
DX: Z12.11 Encounter for screening for malignant neoplasm of colon (principal); K57.30 Diverticulosis of large intestine without perforation or abscess without bleeding; E78.5 Hyperlipidemia, unspecified; E03.9 Hypothyroidism, unspecified; K21.9 Gastro-esophageal reflux disease without esophagitis; E55.9 Vitamin D deficiency, unspecified; J45.909 Unspecified asthma, uncomplicated; L57.0 Actinic keratosis; J32.9 Chronic sinusitis, unspecified; Z79.82 Long term (current) use of aspirin; Z79.51 Long term (current) use of inhaled steroids; Z79.899 Other long term (current) drug therapy; Z90.49 Acquired absence of other specified parts of digestive tract; Z86.0100 Personal history of colon polyps, unspecified; Z87.19 Personal history of other diseases of the digestive system
CPT/HCPCS: 45378; J2003; J2704; J7120

== ENCOUNTER 2025-04-08 15:05 | Emergency (ER) | payer OTHER, SELFPAY ==
[2025-04-08 15:11] VITALS: BP 107/68; PULSE 101; RESP 20; TEMP 36.4; O2SAT 98
--- NOTE | 2025-04-08 15:12 | PC.NURSE ---
nasal clamp placed
[2025-04-08 17:26] VITALS: BP 104/67; PULSE 66; RESP 17; O2SAT 96
--- NOTE | 2025-04-08 20:25 | ED.GENADULT ---
HPI - General Adult General Chief complaint: Epistaxis Stated complaint: nose bleed on and off since am. Time Seen by Provider: 04/08/25 19:57 History of Present Illness HPI narrative: patient is a 65-year-old gentleman who presents emergency department chief complaint of nose bleed patient reports that [place] [facility] reports that he has been off and on bleeding throughout the day the patient states that he has appointment tomorrow at 2:00 p.m. with his ear nose and throat surgeon. Patient reports that he takes a baby aspirin but is not on any other anticoagulants. Related Data Home Medications ?Medication ?Instructions ?Recorded ?Confirmed ?Last Taken ?Type Bacillus coagulans 250 million 2 tablet PO DAILY 04/26/19 02/18/25 02/17/25 History cell-calcium 250 mg chewable tablet ascorbic acid (vitamin C) 500 mg 500 mg PO DAILY 04/26/19 02/18/25 02/17/25 History capsule aspirin 81 mg tablet,delayed 81 mg PO DAILY 04/26/19 02/18/25 02/17/25 History release (Adult Aspirin Regimen) cetirizine 10 mg capsule (Zyrtec) 10 mg PO DAILY 04/26/19 02/18/25 02/17/25 History niacin 500 mg capsule,extended 500 mg PO QAM 04/26/19 02/18/25 02/17/25 History release omega-3 fatty acids 500 mg capsule 500 mg PO DAILY 04/26/19 02/18/25 02/17/25 History calcium 250 mg (as 1 tablet PO BID 12/21/19 02/18/25 02/17/25 History citrate)-vitamin D3 5 mcg (200 unit) tablet finasteride 5 mg tablet 5 mg PO DAILY 11/18/23 02/18/25 02/17/25 History sildenafil 100 mg tablet 100 mg PO DAILY 11/18/23 02/18/25 02/17/25 History rosuvastatin 5 mg tablet 5 mg PO EVERY OTHER DAY 02/04/25 02/18/25 02/17/25 History Allergies Allergy/AdvReac Type Severity Reaction Status Date / Time No Known Allergies Allergy Verified 02/18/25 09:43 Review of Systems Review of Systems: A 10 system review of systems was completed on the patient and is negative except for what is stated in the HPI. Nursing and ancillary documentation was reviewed. PMFSH Past Medical History Medical History STRINGER (dyspnea on exertion) SOB (shortness of breath) BMI 26.0-26.9,adult Cervicalgia Left foot pain Pain and swelling of left lower extremity Seasonal allergies Hearing loss Encounter for preventive health examination BMI 27.0-27.9,adult Bilious vomiting Right upper quadrant abdominal pain History of bronchitis Gallbladder sludge Epigastric abdominal pain Cough Cholecystitis Calculus of gallbladder with acute on chronic cholecystitis Acute asthmatic bronchitis Abnormal findings on imaging of biliary tract Cataract Encounter for preventive health examination Mild reactive airways disease Actinic keratosis Need for influenza vaccination BMI 29.0-29.9,adult Encounter for routine adult health examination without abnormal findings Follow up Hx of colonic polyps Chronic sinusitis Loss of smell Loss of taste Encounter for routine adult health examination with abnormal findings Vitamin D deficiency GERD (gastroesophageal reflux disease) Asthma Hypothyroidism (acquired) Hyperlipidemia BMI 28.0-28.9,adult 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 Abdominal pain Thyroid disease Surgical History Surgical History Status post cholecystectomy S/P laparoscopic cholecystectomy History of cholecystectomy 11/20/18 Social History Social History Smoking status: Never smoker Smoking end date: 05/23/98 Alcohol intake: current Drinks per week: 1 Alcohol use details: per month Substance use: never Substance use type: does not use Lack of Transportation: No Lack of Food: Sometimes True Current Housing: I Have Housing Concerned About Future Housing: Decline to Answer Difficulty Paying Gas/Electric Bills: Decline to Answer Difficulty Paying for Meds: Decline to Answer Currently Unemployed: Decline to Answer Education: Don't Know Difficulty w/ Childcare or Family Care: Decline to Answer Living arrangements: with family Gender identity (if verbalized by the patient): Male Spiritual care concerns: No Exam Narrative: GENERAL: Well-appearing, well-nourished, and in no acute distress. HEAD: Normocephalic, atraumatic. EYES: PERRLA and EOMI. ENT: dried blood in bilateral nostrils, dry clotted blood present in the oropharynx Mucous membranes moist. no active bleeding NECK: Supple. CHEST: Clear to auscultation. No respiratory distress. HEART: Regular rate and rhythm. No murmur heard. Normal peripheral pulses. ABDOMEN: Soft, nontender, nondistended, normal active bowel sounds. EXTREMITIES: Normal range of motion. No edema. SKIN: Warm, dry, no rash. NEURO: No focal deficits. Alert and oriented x3. PSYCH: Normal mood and affect. Course Vital Signs Vital signs: Vital Signs Temperature 36.4 C 04/08/25 15:11 Pulse Rate 101 H 04/08/25 15:11 Respiratory Rate 20 04/08/25 15:11 Blood Pressure 107/68 04/08/25 15:11 Pulse Oximetry 98 04/08/25 15:11 Oxygen Delivery Room Air 04/08/25 15:11 Temperature 36.4 C 04/08/25 15:11 Pulse Rate 66 04/08/25 17:26 Respiratory Rate 17 04/08/25 17:26 Blood Pressure 104/67 04/08/25 17:26 Pulse Oximetry 96 04/08/25 17:26 Oxygen Delivery Room Air 04/08/25 15:11 Medical Decision Making MDM Narrative Medical decision making narrative: patient's bleeding has stopped in the emergency department patient is currently asymptomatic he was given Dixon-Synephrine in the ER he has appointment tomorrow at 2:00 p.m. 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 the patient was instructed return precautions Vital Signs Vital Signs: Vital Signs Temperature 36.4 C 04/08/25 15:11 Pulse Rate 101 H 04/08/25 15:11 Respiratory Rate 20 04/08/25 15:11 Blood Pressure 107/68 04/08/25 15:11 Pulse Oximetry 98 04/08/25 15:11 Oxygen Delivery Room Air 04/08/25 15:11 Temperature 36.4 C 04/08/25 15:11 Pulse Rate 66 04/08/25 17:26 Respiratory Rate 17 04/08/25 17:26 Blood Pressure 104/67 04/08/25 17:26 Pulse Oximetry 96 04/08/25 17:26 Oxygen Delivery Room Air 04/08/25 15:11 Discharge Plan Discharge Clinical Impression: Epistaxis Patient Disposition: Home Condition: Stable Instructions: Antibiotic Form, Nosebleed (ED) Patient Language: Tajik Prescriptions: No Action calcium citrate-vitamin D3 250 mg calcium- 200 unit tablet 1 tablet PO BID fluticasone propionate [Allergy Relief (fluticasone)] 50 mcg/actuation spray,suspension 2 spray NASAL BID PRN (Reason: nasal congestion) Qty: 11.1 0RF Rx Instructions: administer into each nostril, two sprays, twice daily, spray away from septum (DME) Left Ankle Sleeve See Rx Instructions .Route .MEDSUPPLY Qty: 1 0RF Rx Instructions: As directed niacin 500 mg capsule, extended release 500 mg PO QAM omega-3 fatty acids 500 mg capsule 500 mg PO DAILY aspirin [Adult Aspirin Regimen] 81 mg tablet,delayed release (DR/EC) 81 mg PO DAILY ascorbic acid (vitamin C) 500 mg capsule 500 mg PO DAILY Bacillus coagulan-calcium carb 250 million cell-250 mg tablet,chewable 2 tablet PO DAILY Zyrtec 10 mg capsule 10 mg PO DAILY sildenafil 100 mg tablet 100 mg PO DAILY Rx Instructions: administer 30 minutes to 4 hours before activity finasteride 5 mg tablet 5 mg PO DAILY rosuvastatin 5 mg tablet 5 mg PO EVERY OTHER DAY albuterol sulfate [Ventolin HFA] 90 mcg/actuation HFA aerosol inhaler 2 puff inhalation Q4H PRN (Reason: shortness of breath or wheezing) Qty: 8.5 0RF montelukast 10 mg tablet See Rx Instructions .ROUTE .COMPLEX Qty: 90 1RF Dose Instruction: Take 1 tablet by mouth once daily Rx Instructions: Take 1 tablet by mouth once daily levothyroxine 112 mcg tablet See Rx Instructions .ROUTE .COMPLEX Qty: 90 1RF Dose Instruction: Take 1 tablet by mouth once daily Rx Instructions: Take 1 tablet by mouth once daily fluticasone furoate-vilanterol [Breo Ellipta] 100-25 mcg/dose blister with device See Rx Instructions .ROUTE .COMPLEX Qty: 60 2RF Dose Instruction: Inhale 1 puff by mouth once daily Rx Instructions: Inhale 1 puff by mouth once daily Follow-up/Referrals: Conner Newman MD [Primary Care Provider, Internal Medicine] Time of Disposition: 21:07
[2025-04-08] MEDS: PHENYLEPHRINE 1% NA SPR (*BKC) 15 ML BTL 1 SPRAY NASAL (20:51)
[2025-04-08 21:02] VITALS: BP 128/77; PULSE 79; RESP 19; O2SAT 97
== END 2025-04-08 21:18 | disposition home or self-care (01) ==
PROVIDERS: Emergency Provider Emergency Medicine; PCP Internal Medicine
DX: R04.0 Epistaxis (principal); Z98.890 Other specified postprocedural states; J45.909 Unspecified asthma, uncomplicated; E03.9 Hypothyroidism, unspecified; E78.5 Hyperlipidemia, unspecified; E55.9 Vitamin D deficiency, unspecified; E07.9 Disorder of thyroid, unspecified; K21.9 Gastro-esophageal reflux disease without esophagitis; Z86.0100 Personal history of colon polyps, unspecified; Z90.49 Acquired absence of other specified parts of digestive tract; Z79.82 Long term (current) use of aspirin; Z79.899 Other long term (current) drug therapy
CPT/HCPCS: 99283; A9270

== ENCOUNTER 2025-05-18 08:16 | Outpatient (CLI) | payer OTHER, SELFPAY ==
--- OUTSIDE RECORDS SUMMARY | 2025-05-18 08:21 | XMS_ITS | Encounter Summary ---
Author Organization [facility] Health Address [address] [place] [address] Care Team Providers Care [employer] Physical Education Teacher Name Role Phone Conner Newman MD Primary Care Provider [phone] Encounter Details Date Type Department Care Team (Late Contact Info) Description 03/22/2025 Lab Requisition [facility] - Pathology Lab [address] [place] [address] Hawk Mantilla MD [address] [facility] [address] [place] [address] Illness, unspecified Social History Tobacco Use Types Packs/Day Years Used Date Smoking Tobacco: Never Smokeless Tobacco: Never Alcohol Use Standard Drinks/Week Comments Yes 1 (1 standard drink = 0.6 oz pur e alcohol) social Sex and Gender Information Value Date Recorded Sex Assigned at Male 03/15/2021 9:43 AM CDT 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 Gender Identity Male 03/15/2021 9:43 AM CDT Sexual Orientation Straight 03/15/2021 9 :43 AM CDT documented as of this encounter Plan of Treatment Upcoming Encounters Date Type Department Care Team (Late Contact Info) Description 06/03/2025 1:00 PM PORTFOLIO MANAGER Office Visit [facility] - Urology [address] [facility] [facility] [place] [id number] Bradley Posadas PA [address] [place] [address] 07/22/2025 9:50 AM PORTFOLIO MANAGER Office Visit [facility] - Dermatology [address] [facility] [address] [place] [address] Janet Go MD [address] [facility] [address] [place] [address] documented as of this encounter Procedures Procedure Name Priority Date/Time Associated Diagnosis Comments PATHOLOGY TISSUE Routine 03/21/2025 10:2 1 AM CDT Illness, unspecified documented in this encounter Results * PATHOLOGY TISSUE (03/21/2025 10:21 AM CDT) Case Report Surgical Pathology Report Case: [id number] Authorizing Provider: Hawk Mantilla MD Collected: 03/21/2025 10:21 AM Ordering Location: [facility] - Received: 03/22/2025 01:01 PM Pathology Lab Pathologist: Steven Shirley MD Specimen: Sinus, bilateral sinus contents 03/25/2025 8:07 AM [facility] Final Diagnosis Sinus contents, removal: Benign inflammatory (allergic type) respiratory polyps with chronic inflammation and tissue eosinophilia. 03/25/2025 8:07 AM [facility] at [address] [facility] Microscopic Description and Comment Microscopic examination is performed and supports the final diagnosis. 03/25/2025 8:07 AM [facility] Clinical History Diffuse sinonasal polyposis 03/25/2025 8:07 AM [facility] Gross Description Received in formalin, labeled with the patient's name Randy Vaca, labeled specimen A, are multiple polypoid pieces of rubbery red-brown tissue 1.5 x 1.5 x 1.5 cm in aggregate. 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 RB 03/25/2025 8:07 AM [facility] Pathologist Location at [facility] 03/25/2025 8:07 AM [facility] Disclaimer The performance characteristics of all immunohistochemical and indirect immunofluorescence stains (if any) cited in this report were determined by the [facility] of [facility]. Some of these tests were developed by our own laboratory and have not been cleared or approved by the US Food and Drug Administration. The FDA does not require this test to go through premarket FDA review. These tests are used for clinical purposes. They should not be regarded as investigational or for research. This laboratory is certified under the Clinical Laboratory Improvement Amendments (CLIA) as qualified to perform high complexity clinical laboratory testing. This case has been personally reviewed and interpreted by the attending (teaching) pathologist. 03/25/2025 8:07 AM [facility] Embedded Images 03/25/2025 8:07 AM [facility] Pathology/Cytolo gy SINUS / Unknown 03/21/2025 10:21 AM CDT 03/22/2025 1:01 PM CDT Hawk Mantilla MD LAB - PATHOLOGY/CYTOLOGY OR DERABLES Final Result [facility] [address] [phone] documented in this encounter Visit Diagnoses Diagnosis Illness, unspecified documented in this encounter Care Teams [employer] Physical Education Teacher Relationship Specialty Start Date End Date Conner Newman MD [address] [place] [id number] PCP - General 03/19/08 documented as of this encounter
[2025-05-18 09:11] LABS: Hematocrit 39.8 % (42.0-52.0); Hemoglobin 12.9 g/dL (14.0-18.0); Immature Granulocyte Percent A 0.2 % (0-0.5); Lymphocytes Absolute Auto 2.00 K/mm3 (0.9-3.2); Mean Corpuscular HGB Conc 32.4 g/dl (32-36); Mean Corpuscular Hemoglobin 29.6 pg (26-34); Mean Corpuscular Volume 91.3 fl (80-100); Nucleated Red Blood Cells Absolute Auto 0.000 K/mm3 (0.0-0.012); Nucleated Red Blood Cells Perc 0.0 % (0.0-0.2); Platelet Count Result 267 k/mm3 (150-375); Red Blood Count 4.36 M/mm3 (4.6-6.20); White Blood Count 6.2 K/mm3 (4.5-10.0)
[2025-05-18 09:24] LABS: Hemoglobin A1C 5.0 % (<5.7)
[2025-05-18 09:35] LABS: Alanine Aminotransferase 32 U/L (6-50); Albumin Level 4.1 g/dL (3.5-5.1); Alkaline Phosphatase 87 U/L (38-126); Anion Gap 4 mmol/L (4-12); Aspartate Amino Transferase 29 U/L (17-59); Bilirubin,Total 0.3 mg/dL (0.2-1.3); Blood Urea Nitrogen 13 mg/dL (9-20); Calcium 9.3 mg/dL (8.4-10.2); Carbon Dioxide 29 mmol/L (22-30); Chloride 107 mmol/L (98-107); Cholesterol 127 mg/dL (0-200); Estimated Glomerular Filt Rate > 60; Glucose 95 mg/dL (65-110); HDL Direct 52 mg/dL; Potassium 3.9 mmol/L (3.4-5.0); Sodium 140 mmol/L (137-145); Total Protein 7.1 g/dL (6.3-8.2); Triglycerides 56 mg/dL (<150)
[2025-05-18 09:50] LABS: Free T4 Free Thyroxine 1.06 ng/dL (0.78-2.19)
[2025-05-18 10:10] LABS: Thyroid Stimulating Hormone 1.080 uIU/mL (0.465-4.680)
== END 2025-05-18 08:17 | disposition home or self-care (01) ==
LOC: ANHLAB 08:19
PROVIDERS: PCP Internal Medicine; Visit Provider Internal Medicine
DX: E78.2 Mixed hyperlipidemia (principal); E03.9 Hypothyroidism, unspecified; Z79.899 Other long term (current) drug therapy; Z13.1 Encounter for screening for diabetes mellitus
CPT/HCPCS: 36415; 80053; 80061; 83036; 84439; 84443; 85025